=== PATIENT | male | born 1955 | race Caucasian/White ===

== ENCOUNTER 2021-11-28 09:44 | Outpatient (REF) | payer MEDICARE, MEDICAID, SELFPAY ==
--- NOTE | ~2021-11-28 | XR_ITS ---
EXAMINATION: XR CHEST CLINICAL INFORMATION: Nonspec reaction to gamma intrim respns w/o actv tb COMPARISON: Chest radiographs 07/11/2015 TECHNIQUE: 2 views of the chest were obtained. FINDINGS: There is no airspace consolidation or cavitary lesion. No visible adenopathy, pleural thickening, or effusion. There is subtle nonspecific accentuation interstitial markings lower zones. The costophrenic sulci are clear. The heart is normal in size. The hilar and mediastinal contours are normal. No acute bony abnormality. XR/XR chest 2V IMPRESSION: 1. Subtle nonspecific accentuation interstitial markings lower zones. Vascularity normal. 2. No airspace consolidation, visible adenopathy, or effusion.
== END 2021-11-28 09:45 | disposition home or self-care (01) ==
LOC: HO.XRAY 09:44
PROVIDERS: PCP Internal Medicine; Visit Provider Internal Medicine
DX: R76.12 Nonspecific reaction to cell mediated immunity measurement of gamma interferon antigen response without active tuberculosis (principal)
CPT/HCPCS: 71046

== ENCOUNTER 2022-02-27 11:41 | Emergency (ER) | payer MEDICARE, MEDICAID, SELFPAY | END 2022-02-27 12:51 | disposition left against medical advice (07) | PROVIDERS: Emergency Provider Emergency Medicine | DX: R06.02 Shortness of breath (principal) ==

== ENCOUNTER 2023-07-12 13:04 | Emergency (ER) | payer OTHER, MEDICAID, SELFPAY ==
--- NOTE | ~2023-07-12 | XR_ITS ---
EXAMINATION: XR HAND, RIGHT CLINICAL INFORMATION: Third and fourth digit partially amputated. COMPARISON: None available. TECHNIQUE: PA, lateral, and oblique views of the right hand. FINDINGS: There are acute traumatic injuries at the distal phalanges of the middle and ring fingers with soft tissue lacerations and marked comminuted fractures of the distal phalanges at the level of the shafts. The distal shaft and tuft fragments are comminuted and displaced. The distal phalangeal bases appear intact. The DIP joints are normal. Soft tissues are swollen. The thumb, index, and small fingers appear intact. There is an age-indeterminate fracture at the fourth metacarpal base, possibly chronic. Carpal alignment otherwise appears normal. 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 XR/XR hand RT min 3V IMPRESSION: 1. Comminuted fractures of the distal phalanges of the middle and ring fingers with associated soft tissue lacerations. 2. Age-indeterminate fracture at the fourth metacarpal base, possibly chronic. Recommend correlation for point tenderness in this region.
--- NOTE | 2023-07-12 13:09 | ED_ITS ---
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 Patient states that he was mowing the lawn for a friend when something became st uck in the lawnmower. He reports that he removed the spark plug but that when he stuck a branch into the blade to attempt to dislodge the blockage, his hand was pulled into the lawnmower. He is unsure his most recent sent tetanus. He denies any numbness or tingling, complains of severe pain. Denies any other injuries. MD complaint: injury to: right and finger Onset (ago): hour(s) Other Extremity Injury: right: fingers Handedness: right Place: outdoors Severity: severe Severity scale (1-10): >10 Relieving factors: none Exacerbating factors: movement of extremity Context: other (Caught in lawnmower) Associated symptoms: denies other symptoms Treatments prior to arrival: bandage Related Data Previous Rx's Medication Instructions Recorded amoxicillin 875 mg-potassium 1 tab PO BID #20 tabs 07/12/23 clavulanate 125 mg tablet ibuprofen 600 mg tablet 600 mg PO Q6H PRN pain #20 tabs 07/12/23 Allergies Allergy/AdvReac Type Severity Reaction Status Date / Time No Known Allergies Allergy Unverified 07/27/20 16:08 Review of Systems Review of Systems: As per HPI. Yes all other systems are reviewed and are negative Constitutional: Constitutional: Reports as per HPI [facility] Social History Social History Advance Directives: No Advance Directives Information Provided: No Physical Exam Vital Signs: Vital Signs: Last Vital Signs Pulse 71 07/12/23 13:20 Resp 18 07/12/23 13:20 BP 189/93 H 07/12/23 13:20 Pulse Ox 96 07/12/23 13:20 O2 Del Method Room Air 07/12/23 13:20 BMI result Body Mass Index 27.5 Vital signs have been reviewed and appear to be correct. Blood pressure elevated, likely secondary to pain. Heart rate normal. Respiratory rate normal. Temperature normal. Oxygen saturation normal. Const: General: cooperative, healthy appearing and no acute distress Orientation/consciousness: oriented to person, oriented to place, oriented to time and patient oriented x3 Limitations: no limitations HEENT: Head: Yes normocephalic and Yes atraumatic Ears: external ears normal General nose exam: Normal external nose present Face and sinus: Yes face symmetric Mouth: oropharynx normal and moist mucous membranes Throat: Yes uvula midline Eyes: Pupils: Equal, round and reactive pupils present Neck: Neck: Yes normal visual inspection and Yes supple Resp: Effort & Inspection: normal respiratory effort and able to speak in complete sentences Auscultation: clear to auscultation bilaterally Cardio: Rate: regular rate Rhythm: regular rhythm Heart sounds: S1 normal heart sound present and S2 normal heart sound present GI: Palpation (GI): Soft to palpation and nontender Auscultation: normoactive bowel sounds : General: Yes no CVA tenderness Back/Spine/Pelvis: Back: no CVA tenderness Skin: General skin exam: elasticity normal and turgor normal Neuro: General: oriented to person, oriented to place, oriented to time, marilu ent oriented x3, moves all extremities, no focal motor deficits and CN's II-XI intact bilaterally Cranial nerves: Yes Equal, round and reactive pupils present Cognition (Neuro): normal cognition Extrem: Other: General: Yes full ROM, Yes normal exam except as noted, Yes no pedal edema and Yes no calf tenderness Right upper extremity: Extremity exam: right hand Details: laceration (avulsion of distal palmar pad of finger with laceration through nail-see photo) 4th digit palmar aspect distal Details: irregular, avulsion, contaminated (grass), with motor nerve function intact and with sensation intact, 3rd digit distal Details: irregular, contaminated (grass), involving subcutaneous tissue and with motor nerve function intact Psych: Mental Status: mental status grossly normal Affect: normal affect Thought process: Normal thought process present Course Course Course Narrative: RME: 67yo M presenting to the ED c/o 3rd & 4th digit injury/pain 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 Last tetanus unknown 3rd and 4th digits partially amputated X-rays and Tdap ordered. Patient will be walked back to [facility] Full HPI, ROS and PE to be performed by primary ED provider. Medications Administered Discontinued Medications Generic Name Dose Route Start Last Admin Trade Name Claudy PRN Reason Stop Dose Admin Diphtheria/Tetanus/Acell Pertussis 0.5 ml 07/12/23 13:08 07/12/23 13:51 Diphth,Pertus(Acell),Tet Adult 0.5 Ml Syringe IM 07/12/23 13:09 0.5 ml .ONCE ONE Administration Cefazolin Sodium/Dextrose 2 gm in 50 mls @ 100 mls/hr 07/12/23 13:34 07/12/23 14:44 Ancef IV 07/12/23 14:03 Infused ONCE ONE Infusion Lidocaine HCl 10 ml 07/12/23 14:19 07/12/23 14:37 Lidocaine Hcl 1 % Mpf 5 Ml Vial INFILTRATI 07/12/23 14:20 10 ml ONCE ONE Administration Oxycodone HCl 5 mg 07/12/23 13:34 07/12/23 13:49 Oxycodone Hcl Immed Release 5 Mg Tablet PO 07/12/23 13:35 5 mg ONCE ONE Administration Medical Decision Making Medical Decision Making MDM Narrative: Patient is a 67-year-old right-hand dominant Tristanian-speaking male presenting to the emergency department with lacerations to 3rd and 4th fingers of right hand. On exam patient is awake, A+Ox3, elevated blood pressure likely secondary to pain, VS otherwise WNL, afebrile, normal neurological exam without focal deficits, avulsion distal tip of right 4th finger on palmar finger pad, laceration through the nail, irregular lacerations/maceration of distal right 3rd finger involving multiple lacerations of the nail, sensation intact, full range of motion of fingers. Given reported symptoms and physical exam findings, initial differential includes laceration, nailbed injury, fracture. X-ray notable for comminuted fractures of the distal phalanges of the middle and ring fingers with associated soft tissue lacerations. My interpretation is in agreement with the radiologist's interpretation. Wound irrigated extensively, lacerations repaired as per procedure note. Tdap updated. Discussed case with jim Salazar who also discussed the case with Dr. Odell. They recommend extensive cleaning, then closure as best as possible with outpatient follow up. Will refer patient to Orthopedics for continued management. Return precautions discussed at bedside. Patient received 2 g of Ancef in the ED and will prescribe Augmentin b.i.d. for 10 days upon discharge. Patient noted to be hypertensive in the ED. Attempted to order medication, patient refusing, stating he wishes to leave. He denies any headache, vision changes, chest pain, shortness of breath, dizziness, lightheadedness. Instructed patient to follow- up with primary care provider regarding his injuries as well as his elevated blood pressure readings. Differential Diagnosis Differential Diagnoses: The differential diagnosis associated with the present ation includes As per MDM. Admission/Observation Consideration of admission/observation: Escalation of care including admission /observation considered Consult Healthcare Provider Management of the patient was discussed with: Research Statistician (jim Salazar) Independent Interpretation I performed an independent interpretation of an: Plain X-Ray Interpretation: distal comminuted fractures of 3rd and 4th fingers of right hand Radiology Impression Discussion of test interpretation with radiology: I have reviewed the radiologist's reading. Radiologist Impression: XR/XR hand RT min 3V IMPRESSION: 1.? Comminuted fractures of the distal phalanges of the middle and ring fingers with associated soft tissue lacerations. 2.? Age-indeterminate fracture at the fourth metacarpal base, possibly chronic. Recommend correlation for point tenderness in this region. ? External Record Review External record reviewed: Inpatient record, Office record and Outpatient record Prescription Management I considered prescription management with: Pain Medication and Antibiotic Procedures Laceration Laceration 1: Site: hand Side (If applicable): right Description: irregular (avulsion of pad, linear laceration through nail) and contaminated Local Anesthetic: lidocaine 1% Amount of anesthesia used (mL): 3 Pre-repair: wound explored and irrigated extensively Skin layer closed with: nylon Size (cm): 3-0 and 4-0 Number of sutures: 3 Technique: simple, interrupted Laceration 2: Site: hand Side (If applicable): right Description: irregular and contaminated Depth: [id number] Local Anesthetic: lidocaine 1% Amount of anesthesia used (mL): 4 Pre-repair: wound explored and irrigated extensively Skin layer closed with: nylon Size (cm): 3-0 and 4-0 Number of sutures: 11 Technique: simple, interrupted Discharge Plan Discharge Clinical Impression: Open fracture of phalanx of finger of right hand, Laceration of finger of right hand with damage to nail, High blood pressure Patient Disposition: Home, Self-Care Instructions: Laceration (DC), Finger Fracture (ED), Finger Laceration (ED) Additional Instructions: Usted garcia sido evaluado hoy en el departamento de emergencia por helena laceraci?n en los dedos medio y anular de la mano derecha. LE EST?N RECETANDO UN CURSO DE ANTIBI?TICOS PARA PREVENIR INFECCI?N, POR FAVOR REALICE EL CURSO COMPLETO SEG?N LO RECETADO. Roberta laceraciones fueron reparadas en el departamento de emergencias con suturas, courtney necesita helena evaluaci?n y tratamiento adicionales por parte de un ortop?dico. DEBE LLAMAR A LA OFICINA DE ORTOPEDIA A PRIMERA HORA EL ZEHRA POR LA MA?SHAYNA PARA PROGRAMAR HELENA HARMEET. Mantenga el ?rossy que rodea la laceraci?n limpia y seca y mantenga el vendaje en burns lugar claire las pr?ximas 24 horas. D espu?s de eso, cambie el vendaje y eval?e las heridas diariamente. REGRESE AL DEPARTAMENTO DE EMERGENCIA SI DESARROLLA UN DOLOR QUE empeora, hinchaz?n, enrojecimiento, drenaje espeso y amarillo, enrojecimiento en la mano o el brazo, fiebre de 100,4 ?F o m?s, o cualquier otro s?ntoma preocupante. Prescriptions: New amoxicillin-pot clavulanate 875-125 mg tablet 1 tab PO BID Qty: 20 0RF ibuprofen 600 mg tablet 600 mg PO Q6H PRN (Reason: pain) Qty: 20 0RF Referrals: [facility] [Provider Group] Print Language: Tristanian
[2023-07-12 13:20] VITALS: BP 189/93; PULSE 71; RESP 18; O2SAT 96; BMI 27.5
--- OUTSIDE RECORDS SUMMARY | 2023-07-12 13:31 | XMS_ITS | Continuity of Care Document ---
Author Name Unknown Organization [facility] Address [address] [place] [address]- Care Team Providers Care Mines Inspector Name Role Phone Tanner Muniz MD Primary Care Physician [phone] [id number] Date(s): 01/09/[facility] - 02/14/22 [facility] [address] [address] Attending Physician: Isaías Bar MD Admitting Physician: Isaías Bar MD Referring Physician: Steffany Cali MD Allergies, Adverse Reactions, Alerts No Known Allergies Medications Aspir 81 = 81 mg, By Mouth, Daily, 0 Refills, Maintenance Start Date: 07/22/12 Status: Ordered aspirin 81 mg oral tablet 1 tablet = 81 mg, By Mouth, Daily, 0 Refills, Maintenance, 08/14/17 5:37:57 Start Date: 08/14/17 Status: Ordered fluoxetine 10 mg oral tablet 1 tablet = 10 mg, By Mouth, Daily, # 30 tablet, 0 Refills, Maintenance, Tablet Start Date: 07/22/12 Status: Ordered HYDROcodone 5mg/Acetaminophen 500mg Tablet By Mouth, Every 4 hours, 0 Refills, Maintenance Start Date: 07/22/12 Status: Ordered lisinopril 10 mg oral tablet 10 mg, 1, tablet, By Mouth, Daily, Refills 0, Maintenance, 08/14/17 5:38:29 Start Date: 08/14/17 Status: Ordered Loratadine By Mouth, Refills 0, Maintenance, 08/14/17 5:38:44 Start Date: 08/14/17 Status: Ordered Multi-Day Plus Minerals oral tablet 1 tablet, By Mouth, Daily, # 90 tablet, 0 Refills, Maintenance, 08/14/17 5:39:24, Tablet Start Date: 08/14/17 Status: Ordered pantoprazole 40 mg oral delayed release tablet 1 tablet = 40 mg, By Mouth, Daily, # 30 tablet, 0 Refills, Maintenance, 12/16/17 15:51:38, EC Tablet Start Date: 12/16/17 Status: Ordered Proventil HFA 90 mcg/inh inhalation aerosol with adapter 1 puffs, Inhalation, 4 times a day, PRN for wheezing, # 25 Gm, 0 Refills, Maintenance, Aerosol Start Date: 07/22/12 Status: Ordered simvastatin 40 mg oral tablet 40 mg, 1, tablet, By Mouth, Daily at bedtime, Refills 0, Maintenance, 08/14/17 5:38:15 Start Date: 08/14/17 Status: Ordered simvastatin 40 mg oral tablet 1 tablet = 40 mg, By Mouth, Daily at bedtime, # 30 tablet, 0 Refills, Maintenance, Tablet Start Date: 07/22/12 Status: Ordered Problem List Condition Effective Dates Status Health Status Inform ant Low back pain(Confirmed) Active Social History Social History Type Response Smoking Status Never smoker entered on: 08/14/17 Sex
--- OUTSIDE RECORDS SUMMARY | 2023-07-12 13:31 | XMS_ITS | Continuity of Care Document ---
Author Name Unknown Organization [facility] ter Address [address] [place] [address]- Care Team Providers Care Framing Specialist Name Role Phone Tanner Muniz MD Primary Care Physician Encounter [facility] Date(s): 06/05/22 - 06/05/[address] [address]- Attending Physician: Isaías Bar MD Allergies, Adverse Reactions, Alerts No Known [...]
--- OUTSIDE RECORDS SUMMARY | 2023-07-12 13:31 | XMS_ITS | Continuity of Care Document ---
Author Name Unknown Organization [facility] Address [address] [place] [address]- Care Team Providers Care Mission Systems Engineer Name Role Phone Tanner Muniz MD Primary Care Physician Encounter [facility] Date(s): 09/16/22 - 10/16/22 [facility] [address] [address] Attending Physician: Carmelo Christiansen Admitting Physician: AdmCarmelo kidd Referring Physician: AdmtrCarmelo Allergies, Adverse Reactions, Alerts No Known Allergies [...] Maintenance, Aerosol Start Date: 07/22/12 Status: Ordered rifampin 300 mg oral capsule 2 capsule = 600 mg, By Mouth, Daily, # 60 capsule, 3 Refills, Maintenance, 08/06/22 8:54:00 EDT, [facility], home delivery- [address] [place] [address]; [phone], 175.2, cm, 07/30/22 9:11:00 EDT, Height Start Date: 08/06/22 Stop Date: 12/04/22 Status: Ordered simvastatin 40 mg oral tablet 40 mg, 1, tablet, By Mouth, Daily at bedtime, Refills 0, Maintenance, 08/14/17 5:38:15 Start Date: 08/14/17 Status: Ordered simvastatin 40 mg oral tablet 1 tablet = 40 mg, By Mouth, Daily at bedtime, # 30 tablet, 0 Refills, Maintenance, Tablet Start Date: 07/22/12 Status: Ordered Problem List Condition Confirmation Course Effective Dates Status Health St atus Informant Latent tuberculosis 1 Confirmed Active Low back pain Confirmed Active 1Rifampin 600 mg qd x 4 months ordered- #1 bottle to be dispensed Social History Social History Type Response Smoking Status Never smoker entered on: 08/14/17 Sex Note * Event Display: X-Ray Chest, Non- BH Authored Date: * Event Display: Non BH Lab Results Authored Date: * Event Display: X-Ray Chest, Non- BH Authored Date: Patient Care team information Care Team Personnel Name: Tanner Muniz MD Position: [facility] Outreach Member Role: PCP Address: Address: [address] [place] [address]- Care Team Related Persons Name: DEBORAH PIZARRO JR
--- OUTSIDE RECORDS SUMMARY | 2023-07-12 13:31 | XMS_ITS | Continuity of Care Document ---
Author Name Unknown Organization [facility] Address [address] [place] [address]- Care Team Providers Care Senior Accounting Specialist Name Role Phone Tanner Muniz MD Primary Care Physician [phone] En[place] [facility] [place] [id number] Date(s): 09/18/22 - 10/18/22 [facility] [address] [facility] [address] [place], [place] [address] Attending Physician: Carmelo Christiansen Admitting Physician: AdmtrCarmelo Referring Physician: Admtr, Ar8 Allergies, Adverse Reactions, Alerts No Known Allergies [...] capsule, 3 Refills, Maintenance, 08/06/22 8:54:00 EDT, [facility], home delivery- [address] [place] [address]; [phone], 175.2, cm, 07/30/22 9:11:00 EDT, Height Start [...] Status Never smoker entered on: 08/14/17 Sex Patient Care team information Care Team Personnel Name: Tanner Muniz MD Position: [facility] Outreach Member Role: PCP Address: Address: [address] [place] [address]- Care Team Related Persons Name: DEBORAH PIZARRO JR
--- OUTSIDE RECORDS SUMMARY | 2023-07-12 13:31 | XMS_ITS | Continuity of Care Document ---
Author Name Unknown Organization [facility] ter Address [address] [place] [address]- Care Team Providers Care Boat Builder Name Role Phone Tanner Muniz MD Primary Care Physician En[facility] [id number] Date(s): 08/01/22 - 09/05/[address] [address] Attending Physician: Isaías Bar MD Admitting Physician: Isaías Bar MD Referring Physician: Isaías Bar MD Allergies, Adverse Reactions, [...] capsule, 3 Refills, Maintenance, 08/06/22 8:54:00 EDT, [facility], home delivery- [address] [place] [address]; [phone], 175.2, cm, 07/30/22 9:11:00 EDT, Height Start [...] on: 08/14/17 Sex Patient Care team information Personnel Name: Tanner Muniz MD Address: Address: [address] [place], [place] [address]
--- OUTSIDE RECORDS SUMMARY | 2023-07-12 13:31 | XMS_ITS | Continuity of Care Document ---
Author Name Unknown Organization [facility] Address [address] [address]- Care Team Providers Care Clerical Aide Teacher Name Role Phone Tanner Muniz MD Primary Care Physician [phone] [id number] Date(s): 07/31/22 - 10/18/22 [facility] [address] [address]- Attending Physician: Jerry Carty MD Admitting Physician: Jerry Carty MD Referring Physician: Isaías Bar MD Allergies, [...] capsule, 3 Refills, Maintenance, 08/06/22 8:54:00 EDT, [facility], home delivery- [address] [place] [address]; [phone], 175.2, cm, 07/30/22 9:11:00 EDT, Height Start [...] Team Personnel Name: Tanner Muniz MD Position: [facility] Outreach Member Role: PCP Address: Address: [address] [place] [address]- Care Team Related Persons Name: DEBORAH PIZARRO JR
--- OUTSIDE RECORDS SUMMARY | 2023-07-12 13:31 | XMS_ITS | Continuity of Care Document ---
Author Name Unknown Organization [facility] Address [address] [place] [address]- Care Team Providers Care Tempering Oven Operator Name Role Phone Tanner Muniz MD Primary Care Physician [facility] Date(s): 09/10/22 - 10/16/22 [facility] [address] [address] Attending Physician: Isaías Bar MD Admitting Physician: Isaías Bar MD Allergies, Adverse Reactions, [...] capsule, 3 Refills, Maintenance, 08/06/22 8:54:00 EDT, [facility], home delivery- [address] [facility]; [phone], 175.2, cm, 07/30/22 9:11:00 EDT, Height Start [...] List Condition Confirmation Course Effective Dates Status [facility] atus Informant Latent tuberculosis 1 Confirmed Active Low back pain Confirmed Active 1Rifampin 600 mg qd x 4 months ordered- #1 bottle to be dispensed Social History Social History Type Response Smoking Status Never smoker entered on: 08/14/17 Sex Patient Care team information Care Team Personnel Name: Tanner Muniz MD Position: [facility] Outreach Member Role: PCP Address: Address: [address] [place] [address]- Care Team Related Persons Name: DEBORAH PIZARRO JR
--- OUTSIDE RECORDS SUMMARY | 2023-07-12 13:31 | XMS_ITS | Continuity of Care Document ---
Author Name Unknown Organization [facility] Address [address] [place] [address]- Care Team Providers Care Steel Shot Header Operator Name Role Phone Tanner Muniz MD Primary Care Physician [id number]13[facility] - 04/18/22 [facility] [address] [address] Attending Physician: Isaías Bar MD Admitting Physician: Isaías Bar MD Referring Physician: Vidya Loza MD Allergies, Adverse Reactions, Alerts No Known [...]
--- OUTSIDE RECORDS SUMMARY | 2023-07-12 13:31 | XMS_ITS | Continuity of Care Document ---
Author Name Unknown Organization [facility] Address [address] [place] [address]- Care Team Providers Care Pick Up Name Role Phone Tanner Muniz MD Primary Care Physician [phone] Encounter [facility] Date(s): 07/30/22 - 08/29/22 [facility] [address] [address] Attending Physician: Carmelo Christiansen Admitting Physician: Carmelo Christiansen Referring Physician: AdmtrCarmelo Allergies, Adverse Reactions, Alerts [...] capsule, 3 Refills, Maintenance, 08/06/22 8:54:00 EDT, [facility], home delivery- [facility]; [phone], 175.2, cm, 07/30/22 9:11:00 EDT, Height Start [...] Problem List Condition Confirmation Course Effective Dates [facility] Informant Latent tuberculosis 1 Confirmed Active Low back pain Confirmed Active 1Rifampin 600 mg qd x 4 months ordered- #1 bottle to be dispensed Social History Social History Type Response Smoking Status Never smoker entered on: 08/14/17 Sex Patient Care team information Personnel Name: Tanner Muniz MD Address: Address: [address] [place] [address]
--- OUTSIDE RECORDS SUMMARY | 2023-07-12 13:31 | XMS_ITS | Continuity of Care Document ---
Author Name Unknown Organization [facility] ter Address [address] [place] [id number]- Care Team Providers Care Derrick Builder Name Role Phone Tanner Muniz MD Primary Care Physician Encounter [facility] R [id number] Date(s): 08/01/22 - 09/06/[address] [id number] Attending Physician: Isaías Bar [...] capsule, 3 Refills, Maintenance, 08/06/22 8:54:00 EDT, [facility], home delivery- [address] [place] [address]; [phone], 175.2, cm, 07/30/22 9:11:00 EDT, Height Start [...] Name: Tanner Muniz MD Address: Address: [address], [place] [address]
[2023-07-12] MEDS: oxyCODONE HCl Immed Release 5 MG TABLET PO (13:49)
[2023-07-12] MEDS: Diphth,Pertus(ACell),Tet Adult 0.5 ML SYRINGE IM (13:51)
[2023-07-12] MEDS: ceFAZolin Sodium/Dextrose,Iso 2 GM/50 ML PIGGYBACK IV (14:10)
[2023-07-12] MEDS: Lidocaine HCl 1 % MPF 5 ML VIAL 10 ML INFILTRATI (14:37)
[2023-07-12 16:49] VITALS: BP 216/97; PULSE 81; RESP 16; TEMP 37.1; O2SAT 96
== END 2023-07-12 17:19 | disposition home or self-care (01) ==
PROVIDERS: Emergency Provider Emergency Medicine
DX: S62.632B Displaced fracture of distal phalanx of right middle finger, initial encounter for open fracture (principal); S62.634B Displaced fracture of distal phalanx of right ring finger, initial encounter for open fracture; S61.312A Laceration without foreign body of right middle finger with damage to nail, initial encounter; S61.314A Laceration without foreign body of right ring finger with damage to nail, initial encounter; W28.XXXA Contact with powered lawn mower, initial encounter; I10 Essential (primary) hypertension; Y93.H9 Activity, other involving exterior property and land maintenance, building and construction; Y92.9 Unspecified place or not applicable; Y99.9 Unspecified external cause status
CPT/HCPCS: 12041; 73130; 90471; 90715; 96365; 99284; J0690

== ENCOUNTER 2023-07-15 11:54 | Outpatient (REF) | payer OTHER, MEDICAID, SELFPAY ==
--- NOTE | ~2023-07-15 | XR_ITS ---
EXAMINATION: XR HAND, RIGHT CLINICAL INFORMATION: Follow-up fracture COMPARISON: 07/12/2023 TECHNIQUE: PA, lateral, and oblique views of the right hand. FINDINGS: Comminuted fractures are seen of the third and fourth distal phalanges. There is improved anatomic alignment and positioning of the fracture fragments compared to the prior exam. Associated soft tissue swelling is seen. XR/XR hand RT min 3V IMPRESSION: Comminuted fractures of the third and fourth distal phalanges. Improved anatomic alignment and positioning of the fracture fragments
== END 2023-07-15 11:55 | disposition home or self-care (01) ==
LOC: HO.HOSX 11:54
PROVIDERS: Visit Provider Orthopaedic Surgery
DX: S62.632A Displaced fracture of distal phalanx of right middle finger, initial encounter for closed fracture (principal); S62.634A Displaced fracture of distal phalanx of right ring finger, initial encounter for closed fracture
CPT/HCPCS: 73130; 99202

== ENCOUNTER 2023-07-15 11:54 | Outpatient (AMB) | payer OTHER, MEDICAID, SELFPAY ==
--- NOTE | 2023-07-15 12:09 | A.OFFVIS_ITS ---
Intake Intake Visit Reasons: N/P ED follow up rt hand 3&4th finger laceration Intake Note: Ingris 67 year old -- hand dominant male who presents today for an ER follow up of laceration to right hand, 3rd & 4th finger, DOI 07/12/23. Patient reports his hand was pulled into the drapery operator when he attempted to dislodge the blockage. thats when he stuck a branch into the blade to attempt to dislodge the blockage, his hand was pulled into the lawnmower. Pt is in severe pain. Accompanied by: Son Allergies No Known Allergies Allergy (Unverified 07/15/23 12:50) HPI N/P ED follow up rt hand 3&4th finger laceration HPI Details Arnav is a 67 year old right hand dominant Latvian speaking man who presents for a right middle & ring finger injury, from a lawnmower, DOI: 07/12/23. He is here today with his son. He says he was trying to clear a blockage of the lawnmower by using a stick but his hand was sucked in . He was seen in the ED the same day where his wounds were irrigated and sutured, and he was given a 10-day course o Augmentin. He denies any pain today in clinic.. He removed his dressing himself at home. It is unclear if he has been taking his Abx. His son says he has difficulty with comprehension at times and he may have trouble following instructions. Sounds like he may have taken 1 or 2 tablets. He has a rash on both forearms, which he says began after running into a bernard after his injury. This is somewhat inflamed and may potentially be poison hudson. He says this is itchy. [facility] Surgical History (Updated 07/15/23 @ 12:52 by Doris Steel MA) H/O hernia repair Family History (Updated 07/15/23 @ 12:53 by Doris Steel MA) Father Diabetes Social History (Updated 07/15/23 @ 12:52 by Doris Steel MA) Household Members: Significant Other Housing: Apartment Alcohol intake: current Alcohol intake frequency: a few times a week Tobacco use type: Cigarette Cigarettes Per Day: 20 Review of Systems Const All systems reviewed & are unremarkable except as noted in HPI and below Physical Exam Const General: cooperative, healthy appearing and no acute distress Orientation/consciousness: patient oriented x3 HEENT Head: Yes normocephalic and Yes atraumatic Eyes EOM: EOMs intact bilaterally Resp Effort & Inspection: normal respiratory effort and able to speak in complete sentences Cardio Jugular venous distension: no JVD Skin General skin exam: turgor normal Rashes: no rashes Neuro General: patient oriented x3 Extrem Other: Evaluation of Right Upper Extremity: The patient is alert, oriented, and in no acute distress Neuro: Median, Ulnar, Radial nerves motor and sensory intact and sensation is normal to the tips of all digits Vascular: Cap refill brisk ROM: General: Concerning the ring finger: He is missing skin from the volar half of the distal phalanx He has a transverse nailbed injury where the nail plate has been re-aligned and the wound has been sutured closed Concerning the middle finger He has a more complex wound over the distal aspect of the middle finger The majority of the pad looks to be a separate flap of skin that has questionable viability He also has a complex laceration through the nail bed. The nail plate is still attached and was reapproximated with sutures. No gross infection, though the wound does look a little damp. He can make a fist and extend all of his digits. He has a rash on both forearms, which he says began after running into a bernard after his injury. This is somewhat inflamed and may potentially be poison hudson Radiographs: 3 views of the right hand were taken, viewed, and compared to prior radiographs taken on 07/12/23, by me today in clinic. They show comminuted fractures of the middle & ring fingers, through the body of the distal phalanxes, extra- articular. It appears some of the middle finger distal phalanx may be missing. Improved fracture alignment after wound closure in the ED. There is still a gap between fragments in the ring finger. Psych Appearance: grossly normal Affect: normal affect Attitude: cooperative Assessment & Plan Assessment & Plan (1) Fracture of distal phalanx of right middle finger: Code(s): S62.632A - Displaced fracture of distal phalanx of right middle finger, initial encounter for closed fracture (2) Fracture of distal phalanx of right ring finger: Code(s): S62.634A - Displaced fracture of distal phalanx of right ring finger, initial encounter for closed fracture Plan Assessment & Plan: 1. Right middle finger open distal phalanx fracture, comminuted, and extra- articular On radiographs it appears some of the middle finger distal phalanx may be missing. Improved fracture alignment after wound closure in the ED 2. Right ring finger open distal phalanx fracture, comminuted, and extra- articular Improved fracture alignment after wound closure in the ED From a lawnmower injury DOI: 07/12/23 with a lawn more. Irrigated & sutured in ED: 07/12/23 These wounds also involve the nail bed for both digits, with poor appearing viability of the tissues in the distal aspect of the middle finger, and no skin coverage for the distal volar portion of the ring finger. Does not sound like he has been taking his antibiotics with any regularity. His son says he has difficulty with comprehension at times and he may have trouble following instructions. He attempted to walk out of clinic twice before his appointment was finished Compliance may be a problem with regards to wound care etc.. I educated him and his son about this condition I discussed operative and non-operative treatment options I am recommending we proceed with an I&D of both wounds, and revision amputations The patient would like to proceed with surgery It is unclear if he has been taking his prescribed Abx I educated him about proper wound care and the signs of infection. If he develops any new or worsening drainage, erythema, warmth, or pain he should contact the clinic or attend the ED He should begin to take his PO Abx prescribed at the ED. The risks and benefits of operative treatment were discussed with the patient and the patient wishes to proceed with surgery. These risks include, but are not limited to risk of damage to blood vessels, nerves, tendons, infection, recurrence, incomplete relief of preoperative symptoms, persistent pain, possible need for further surgery and the risks associated with regional blocks and anesthesia. The plan is to take the patient to the operating room sometime on 07/21/23 for the following procedures: 1. Right middle finger distal phalanx fracture I&D & revision amputation, under general 2. Right ring finger distal phalanx fracture I&D & revision amputation, under general All of the preoperative paperwork including the consent was filled out today. All the patient's questions were answered. The patient understands that they will be contacted by our lunchroom mother soon to schedule this procedure. This will hopefully give him time for his possible poison hudson forearm rashes to improve He denies Diabetes, blood thinners, asthma, heart, lung, kidney issues Please note that greater than 30 minutes was spent with this patient going over the history, evaluating the patient and radiographs, formulating possible treatment options, discussing them with the patient, and documenting the visit. Scribed for Mary Dunn MD by Jose Guadalupe Mckenna, diagnostic medical sonographer, on 07/15/23 at 1:45 PM, EST. Orders: Orders XR hand RT min 3V Today M79.641 - Pain in right hand Coding Level of Care Code New Pt Level 4 (69705) Diagnoses Fracture of distal phalanx of right middle finger S62.632A Fracture of distal phalanx of right ring finger S62.634A
== END 2023-07-15 14:26 | disposition home or self-care (01) ==
PROVIDERS: Visit Provider Orthopaedic Surgery
DX: S62.632B Displaced fracture of distal phalanx of right middle finger, initial encounter for open fracture (principal); S62.634B Displaced fracture of distal phalanx of right ring finger, initial encounter for open fracture
CPT/HCPCS: 99204

== ENCOUNTER 2023-07-21 12:20 | Emergency (ER) | payer OTHER, MEDICAID, SELFPAY ==
--- NOTE | ~2023-07-21 | CT_ITS ---
EXAMINATION: CT HEAD WITHOUT CONTRAST CLINICAL INFORMATION: Fall COMPARISON: None available. TECHNIQUE: Contiguous axial imaging was performed from the skull base to vertex without intravenous administration of contrast. This CT examination was performed using dose optimization techniques as appropriate, variously including the following: *Automated exposure control *Adjustment of mA and/or kV according to patient size (this includes techniques or standardized protocols for targeted exams where dose is matched to indication/reason for exam; i.e. extremities or head) *Use of iterative reconstruction technique DLP: 670 mGy-cm FINDINGS: There is no evidence of an extra-axial collection. There is no evidence of intra-axial or extra-axial hemorrhage. The ventricles and extra-axial CSF spaces are appropriate. Javier-white matter differentiation is normal. No infarct, mass or mass effect. No skull fracture. Possible right nasal bone fracture, uncertain age. Inflammatory changes in the left maxillary sinus. CT/CT head/brain wo IV con IMPRESSION: No acute intracranial pathology. Inflammatory changes in the left maxillary sinus.
--- NOTE | ~2023-07-21 | CT_ITS ---
EXAMINATION: CT CERVICAL SPINE WITHOUT CONTRAST CLINICAL INFORMATION: Fall COMPARISON: None available. TECHNIQUE: Axial images through the cervical spine without contrast. Sagittal and coronal reconstructions on the technologist workstation were performed. This CT examination was performed using dose optimization techniques as appropriate, variously including the following: *Automated exposure control *Adjustment of mA and/or kV according to patient size (this includes techniques or standardized protocols for targeted exams where dose is matched to indication/reason for exam; i.e. extremities or head) *Use of iterative reconstruction technique DLP: 362 mGy-cm FINDINGS: Bone alignment is normal. No fracture or dislocation. Degenerative spondylosis from C3-C4 to C6-C7. Disc spaces are normal. Prevertebral soft tissues are normal. Visualized lung apices are clear. There is mild emphysema. CT/CT cervical spine wo IV con IMPRESSION: No fracture or dislocation. Degenerative changes. Fleischner guidelines were followed.
[2023-07-21 12:40] VITALS: BP 122/72; BP 134/74; PULSE 65; PULSE 86; RESP 18; TEMP 36.8; O2SAT 95; O2SAT 96; BMI 20.4
--- NOTE | 2023-07-21 13:21 | PC.NURSE ---
pt biba after bystander called ems. bystander saw pt lethargic/leaning on the wall at the [employer] store and called ems. pt's pupils were pinpoint during ems transport. pt currently sleeping in the stretcher in no apparent distress. O2 probe sensor placed on pt - O2 and HR wnl. sternal stimuli needed to wake pt. respirations even and unlabored.
--- NOTE | 2023-07-21 14:09 | ED.GENADULT ---
HPI - General Adult General Chief complaint: ETOH/Substance Use Stated complaint: UNREADABLE CMED TRANSMISSION Time Seen by Provider: 07/21/23 13:54 Source: patient, EMS, RN notes reviewed and old records reviewed Mode of arrival: EMS History of Present Illness HPI narrative: 68-year-old male with no known past medical history presenting to the ED via EMS after being found lethargic/?under the influence standing on the side of a store by bystander who called EMS. Patient with pinpoint pupils during EMS transport. 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 Patient admits to drinking several beers, will not elaborate. Denies other illicit substance use. Admits to 2 falls today, unknown head trauma or LOC. denies other pain at present, however poor historian Related Data Previous Rx's Medication Instructions Recorded amoxicillin 875 mg-potassium 1 tab PO BID #20 tabs 07/12/23 clavulanate 125 mg tablet ibuprofen 600 mg tablet 600 mg PO Q6H PRN pain #20 tabs 07/12/23 cephalexin 500 mg capsule 500 mg PO QID 7 days #28 caps 07/22/23 Allergies Allergy/AdvReac Type Severity Reaction Status Date / Time No Known Allergies Allergy Unverified 07/22/23 07:10 Review of Systems Review of Systems: ROS limited due to patient's acute mental status Yes all other systems are reviewed and are negative Constitutional: Constitutional: Reports as per [facility] Past Medical History Attestation statement: The following information was validated with the patient. Source: old records reviewed Surgical History (System 07/22/23 @ 07:10 by Onelia Almanza) H/O hernia repair Family History Family History (System 07/22/23 @ 07:10 by Onelia Almanza) Father Diabetes Social History Social History (System 07/22/23 @ 07:10 by Onelia Almanza) Household Members: Significant Other Housing: Apartment Alcohol intake: unknown Tobacco use type: Cigarette Cigarettes Per Day: 20 Smoked in Last 30 Days: No Use of substances other than those prescribed or required for medical reasons: No Advance Directives: No Advance Directives Information Provided: Yes Physical Exam ED Vital Signs: Vital Signs - 24 hr 07/21/23 12:40 07/21/23 16:45 07/21/23 17:46 Temperature 98.3 F 98.3 F Pulse Rate 86 53 56 Respiratory Rate 18 16 16 Blood Pressure 134/74 138/79 179/97 H Pulse Oximetry 96 96 97 Oxygen Delivery Method Room Air Room Air Room Air 07/21/23 21:32 07/22/23 01:18 Temperature 98.5 F Pulse Rate 60 78 Respiratory Rate 17 16 Blood Pressure 190/98 H 178/89 H Pulse Oximetry 98 96 Oxygen Delivery Method Room Air Room Air BMI result Body Mass Index 20.4 Const Other: Lethargic however arousable to sternal rub, appears under the influence, ETOH odor on breath General: no acute distress and intoxicated appearing Limitations: no limitations HENMT Head: Yes normal to inspection and Yes atraumatic Ears: hearing grossly normal bilaterally General nose exam: Normal external nose present Face and sinus: Yes normal facial exam Eyes General: appearance normal, both eyes and all related structures Pupils: Pinpoint pupils bilaterally (Reactive) EOM: EOMs intact bilaterally Neck Neck: Yes normal visual inspection and Yes no meningeal signs Resp Effort & Inspection: normal respiratory effort and no respiratory distress Auscultation: clear to auscultation bilaterally Cardio Rate: regular rate Heart sounds: S1 normal heart sound present and S2 normal heart sound present GI Inspection: Yes normal to inspection Palpation (GI): Soft to palpation, nontender, no guarding and not rigid Back/Spine/Pelvis Other: No midline cervical/thoracic/lumbar spinous tenderness/step-off or deformity Skin Rashes: no rashes Wounds: no wounds Neuro General: tone normal, moves all extremities and no meningeal signs Cranial nerves: Yes CN's II-XII intact bilaterally Extrem General: Yes normal to inspection Course Course Course Narrative: -labs reassuring. Ethanol negative 1630--ED care transferred to [facility] pending Tox screen, CT's, & clinical sobriety. Reevaluation(s) Reevaluation #1: Patient alert oriented x3. Patient head CT scan cervical spine CT scan normal. Patient's alcohol came back negative. Patient's U tox showed multiple drugs including opiates, benzos cocaine, and fentanyl. Patient to be discharged into son's care. UA shows possible UTI. Time: 01:09 Medical Decision Making Medical Decision Making MDM Narrative: 68-year-old male with no known past medical history presenting to the ED via EMS after being found lethargic/?under the influence standing on the side of a store by bystander who called EMS. On exam vital signs stable, lethargic, appears under the influence, arousable to sternal rub, maintaining airway, ETOH odor on breath. No evidence of trauma, no midline spinous tenderness throughout, leaving all extremities. Concern for ETOH intoxication vs substance abuse vs fall/ICH. Rule out metabolic/infectious etiologies Plan: Head/C-spine CT, labs, tox screen, observe and re-evaluate for clinical sobriety Please refer to course for remaining clinical decision making, interpretation of labs/imaging results, and discussions with consultants and/or family members. Differential Diagnosis Differential Diagnoses: The differential diagnosis associated with the presentation includes As above Admission/Observation Consideration of admission/observation: Escalation of care including admission/observation considered Lab Data MDM Lab Attestation statement: I reviewed the patient's lab results. 07/21/23 15:36 07/21/23 15:36 Labs: Lab Results 07/21/23 07/22/23 07/22/23 Range/Units 15:36 00:20 00:21 WBC 5.9 (4.8-10.8) X10*3/uL RBC 4.59 L (4.60-5.80) X10*6/uL Hgb 14.2 (14.0-18.0) g/dl Hct 42.2 (42.0-52.0) % MCV 91.9 (80.0-98.0) fL MCH 30.9 (27.0-33.0) pg MCHC 33.6 (31.0-36.0) g/dl RDW 12.4 (11.0-16.0) % Plt Count 231 (160-400) X10*3/uL MPV 9.5 (9.4-12.4) fL Immature Gran % (Auto) 0.2 (0.0-0.4) % Neut % (Auto) 51.1 (45-73) % Lymph % (Auto) 36.1 (20-40) % Crawford % (Auto) 6.2 (2-11) % Eos % (Auto) 5.6 H (0-4) % Baso % (Auto) 0.8 (0-2) % Lymph # (Auto) 2.1 (1.2-4.9) X10*3/uL Crawford # (Auto) 0.4 (0.1-1.2) X10*3/uL Eos # (Auto) 0.3 (0.0-0.4) X10*3/uL Baso # (Auto) 0.1 (0.0-0.2) X10*3/uL Abs Immat Gran (auto) 0.01 (0.00-0.03) X10*3/uL Absolute Neuts (auto) 3.0 (2.0-8.3) x10*3/uL Absolute Nucleated RBC 0.000 (0.0-0.012) X10*3/uL Nucleated RBC % (auto) 0.0 (0.0-0.2) /100WBC Sodium 139 (135-145) mmol/L Potassium 3.9 (3.3-5.1) mmol/L Chloride 109 H (96-108) mmol/L Carbon Dioxide 23 (22-29) mmol/L Anion Gap 11 L (12-20) BUN 17 H (9-16) mg/dL Creatinine 0.70 (0.5-1.4) mg/dL Estim Creat Clear Calc 83.0 Estimated GFR > 60 Random Glucose 88 (60-115) mg/dL Calcium 8.8 (8.4-10.2) mg/dL Magnesium 2.3 (1.6-2.6) mg/dL Total Bilirubin 0.5 (0.0-1.0) mg/dL Direct Bilirubin 0.2 (0.0-0.5) mg/dL AST 27 (5-37) U/L ALT 17 (0-40) U/L Alkaline Phosphatase 72 (39-117) U/L Total Protein 7.3 (6.5-8.0) g/dL Albumin 3.3 L (3.5-5.0) g/dL Urine Color Yellow Urine Appearance Clear Urine pH 6.0 (5.0-9.0) Ur Specific [place] 1.020 (1.005-1.025) Urine Protein Trace (Neg-Trace) mg/dL Urine Glucose (UA) Negative (Negative) mg/dL Urine Ketones Trace (Negative) mg/dL Urine Blood Negative (Negative) Urine Nitrite Negative (Negative) Ur Leukocyte Esterase Moderate (2+) H (Negative) Urine RBC 3-5 H (0-2) /HPF Urine WBC 6-10 (0-5) /HPF Ur Squamous Epith Cells 3-5 (0-2) /HPF Urine Bacteria Trace (None Seen) Hyaline Casts 3-5 (0-2) /LPF Urine Opiates Screen POSITIVE H (Not Detect) Urine Fentanyl Screen POSITIVE H (Not Detect) Ur Barbiturates Screen Not Detected (Not Detect) Ur Phencyclidine Scrn Not Detected (Not Detect) Ur Amphetamines Screen Not Detected (Not Detect) U Benzodiazepines Scrn POSITIVE H (Not Detect) Urine Cocaine Screen POSITIVE H (Not Detect) U Marijuana (THC) Screen POSITIVE H (Not Detect) Ethyl Alcohol < 10 mg/dL Independent Interpretation I performed an independent interpretation of an: CT Scan Radiology Impression Discussion of test interpretation with radiology: I have reviewed the radiologist's reading. Independent Historian Clinical information obtained from an independent historian. History obtained from or confirmed by: EMS External Record Review External record reviewed: Inpatient record, Office record, Outpatient record, Prior outpatient labs, Prior outpatient radiology, Primary care record and Outside ED record Tests considered The following testing was considered but not selected: As above Social Determinants Patient?s care significantly limited by Social Determinants of Health including: Low income and Alcoholism and drug addiction in family Discharge Plan Discharge Clinical Impression: Falls, Substance abuse Patient Disposition: Home, Self-Care Instructions: Urinary Tract Infection in Men (ED), Polysubstance Abuse (ED) Additional Instructions: Return to the ED immediately for any abdominal pain, nausea, vomiting, fever, chills, flank pain, suicidal ideation, homicidal ideation, any hallucinations, hematuria, or any other concerning symptoms. Please follow up with PCP. Prescriptions: New cephalexin 500 mg capsule 500 mg PO QID 7 Days Qty: 28 0RF No Action amoxicillin-pot clavulanate 875-125 mg tablet 1 tab PO BID Qty: 20 0RF ibuprofen 600 mg tablet 600 mg PO Q6H PRN (Reason: pain) Qty: 20 0RF Interventions: ED Discharge Assessment Last Done: 07/22/23 01:36 Discharge Date/Time: 07/22/23 01:37 Print Language: Bahraini
--- NOTE | 2023-07-21 14:19 | PC.NURSE ---
provider and conference interpreter bedside w/ pt.
[2023-07-21 15:40] LABS: MANUAL DIFF FLAG NO
[2023-07-21 15:41] LABS: Basophils Absolute Auto 0.1 X10*3/uL (0.0-0.2); Basophils Percent Auto 0.8 % (0-2); Eosinophils Absolute Auto 0.3 X10*3/uL (0.0-0.4); Eosinophils Percent Auto 5.6 % (0-4); Hematocrit 42.2 % (42.0-52.0); Hemoglobin 14.2 g/dl (14.0-18.0); Imm Gran Abs Auto 0.01 X10*3/uL (0.00-0.03); Imm Gran Pct Auto 0.2 % (0.0-0.4); Lymphocytes Absolute Auto 2.1 X10*3/uL (1.2-4.9); Lymphocytes Percent Auto 36.1 % (20-40); Mean Corpuscular HGB Conc 33.6 g/dl (31.0-36.0); Mean Corpuscular Hemoglobin 30.9 pg (27.0-33.0); Mean Corpuscular Volume 91.9 fL (80.0-98.0); Mean Platelet Volume 9.5 fL (9.4-12.4); Monocytes Absolute Auto 0.4 X10*3/uL (0.1-1.2); Monocytes Percent Auto 6.2 % (2-11); Neutrophils Percent Auto 51.1 % (45-73); Platelet Count 231 X10*3/uL (160-400); Red Blood Count 4.59 X10*6/uL (4.60-5.80); Red Cell Distribution Width 12.4 % (11.0-16.0); White Blood Count 5.9 X10*3/uL (4.8-10.8)
[2023-07-21 15:57] LABS: Alanine Aminotransferase 17 U/L (0-40); Albumin Level 3.3 g/dL (3.5-5.0); Alkaline Phosphatase 72 U/L (39-117); Anion Gap 11 (12-20); Aspartate Amino Transferase 27 U/L (5-37); Bilirubin Direct 0.2 mg/dL (0.0-0.5); Bilirubin Total 0.5 mg/dL (0.0-1.0); Blood Urea Nitrogen 17 mg/dL (9-16); Calcium 8.8 mg/dL (8.4-10.2); Carbon Dioxide 23 mmol/L (22-29); Chloride 109 mmol/L (96-108); Estimated Glomerular Filt Rate > 60; Ethanol < 10 mg/dL; Glucose Random 88 mg/dL (60-115); Magnesium 2.3 mg/dL (1.6-2.6); Potassium 3.9 mmol/L (3.3-5.1); Sodium 139 mmol/L (135-145); Total Protein 7.3 g/dL (6.5-8.0)
--- NOTE | 2023-07-21 16:25 | PC.NURSE ---
pt currently resting w/ eyes closed at this time. pt respirations even and unlabored. pt in no apparent distress at this time.
[2023-07-21 16:45] VITALS: BP 138/79; PULSE 53; RESP 16; O2SAT 96
[2023-07-21 17:46] VITALS: BP 179/97; PULSE 56; RESP 16; TEMP 36.8; O2SAT 97
--- NOTE | 2023-07-21 18:16 | PC.NURSE ---
pt resting comfortably on stretcher w/ eyes closed. respirations even and unlabored. vss and up to date.
[2023-07-21 21:32] VITALS: BP 190/98; PULSE 60; RESP 17; TEMP 36.9; O2SAT 98
[2023-07-22 00:29] LABS: Appearance Urine Clear; Color Urine Yellow; Glucose Urine UA Negative (Negative); Leukocyte Esterase Urine Moderate (2+) (Negative); Nitrite Urine Negative (Negative); UMIC TRIGGER UACC YES; Urine Blood Negative (Negative); Urine Ketones Trace mg/dL (Negative); Urine Protein Trace mg/dL (Neg-Trace)
[2023-07-22 00:35] LABS: Amphetamine Screen Urine Not Detected (Not Detect); Barbiturates, Urine Not Detected (Not Detect); Benzodiazepines Screen Urine POSITIVE (Not Detect); Cannabinoid Screen Urine POSITIVE (Not Detect); Cocaine Screen Urine POSITIVE (Not Detect); Fentanyl, urine POSITIVE (Not Detect); Opiate Screen Urine POSITIVE (Not Detect); Phencyclidine Screen Urine Not Detected (Not Detect)
[2023-07-22 00:37] LABS: Bacteria Urine Trace (None Seen); UACC Culture Trigger YES
--- OUTSIDE RECORDS SUMMARY | 2023-07-22 01:01 | XMS_ITS | Continuity of Care Document ---
Author Name Unknown Organization [facility] Address [address] [place] [id number]- Care Team Providers Care Superintendent Renting Managing Name Role Phone Tanner Muniz MD Primary Care Physician [phone] [id number] Date[facility]13[facility] - 04/18/22 [facility] [address] [id number] Attending Physician: Isaías Bar MD Admitting [...]
--- OUTSIDE RECORDS SUMMARY | 2023-07-22 01:01 | XMS_ITS | Continuity of Care Document ---
Author Name Unknown Organization [facility] ter Address [address] [place] [id number]- Care Team Providers Care Medical Clerical Assistant Name Role Phone Tanner Muniz MD Primary Care Physician [facility] [id number] Date(s): 08/01/22 - 09/05/[address] [address] Attending Physician: Isaías Bar MD Admitting [...] capsule, 3 Refills, Maintenance, 08/06/22 8:54:00 EDT, [facility], home delivery- [address] [place] [address]; [phone], 175.2, cm, 07/30/22 9:11:00 EDT, Height Start [...] Name: Tanner Muniz MD Address: Address: [address] [place], [place] [address]
--- OUTSIDE RECORDS SUMMARY | 2023-07-22 01:02 | XMS_ITS | Continuity of Care Document ---
Author Name Unknown Organization [facility] Address [address] [place] [address]- Care Team Providers Care Maintenance Millwright Name Role Phone Tanner Muniz MD Primary Care Physician [phone] Encounter [facility] Date(s): 07/30/22 - 08/29/22 [facility] [address] [address] Attending Physician: Carmelo Christiansen Admitting [...] capsule, 3 Refills, Maintenance, 08/06/22 8:54:00 EDT, [facility], home delivery- [address] [facility]; [phone], 175.2, cm, 07/30/22 9:11:00 EDT, Height Start [...] Problem List Condition Confirmation Course Effective Dates [facility] Informant Latent tuberculosis 1 Confirmed Active Low back pain Confirmed Active 1Rifampin 600 mg qd x 4 months ordered- #1 bottle to be dispensed Social History Social History Type Response Smoking Status Never smoker entered on: 08/14/17 Sex Patient Care team information Personnel Name: Tanner Muniz MD Address: Address: [address] [place] [address]
--- OUTSIDE RECORDS SUMMARY | 2023-07-22 01:02 | XMS_ITS | Continuity of Care Document ---
Author Name Unknown Organization [facility] ter Address [address] [place] [id number]- Care Team Providers Care Front Desk Auxiliary Name Role Phone Tanner Muniz MD Primary Care Physician Encounter [facility] Date(s): 06/05/22 - 06/05/[address] [address]- Attending Physician: Isaías Bar MD Allergies, Adverse [...]
--- OUTSIDE RECORDS SUMMARY | 2023-07-22 01:02 | XMS_ITS | Continuity of Care Document ---
Author Name Unknown Organization [facility] Address [address] [place] [address]- Care Team Providers Care Dry Clipper Tender Name Role Phone Tanner Muniz MD Primary Care Phys[id number] Date(s): 01/09/22 - 02/14/22 [facility] [address] [address] Attending Physician: Isaías Bar [...]
--- OUTSIDE RECORDS SUMMARY | 2023-07-22 01:04 | XMS_ITS | Continuity of Care Document ---
Author Name Unknown Organization [facility] Address [address] [place] [address]- Care Team Providers Care Crown Pouncer Name Role Phone Tanner Muniz MD Primary Care Physician [phone] Encounter [facility] Date(s): 09/16/22 - 10/16/22 [facility] [address] [address] Attending Physician: Carmelo Christiansen Admitting Physician: AdmCarmelo [...] capsule, 3 Refills, Maintenance, 08/06/22 8:54:00 EDT, [facility], home delivery- [address] [place] [address]; [phone], 175.2, cm, 07/30/22 9:11:00 EDT, Height Start [...] [facility] Outreach Member Role: PCP Address: Address: [address] [place] [id number]- Care Team Related Persons Name: DEBORAH PIZARRO JR
[2023-07-22 01:18] VITALS: BP 178/89; PULSE 78; RESP 16; O2SAT 96
== END 2023-07-22 01:37 | disposition home or self-care (01) ==
PROVIDERS: Physician Assistant; Emergency Provider Student in an Organized Health Care Education/Training Program
DX: F19.10 Other psychoactive substance abuse, uncomplicated (principal); R29.6 Repeated falls; R53.83 Other fatigue; F17.210 Nicotine dependence, cigarettes, uncomplicated; Z79.899 Other long term (current) drug therapy
CPT/HCPCS: 36415; 70450; 72125; 80048; 80076; 80307; 81001; 83735; 85025; 87086; 99284

== ENCOUNTER 2023-08-12 02:05 | Emergency (ER) | payer OTHER, MEDICAID, SELFPAY ==
--- NOTE | ~2023-08-12 | XR_ITS ---
EXAMINATION: XR CHEST CLINICAL INFORMATION: Chest pain. COMPARISON: 11/28/2021. TECHNIQUE: Frontal view of the chest was obtained. FINDINGS: The cardiomediastinal silhouette is stable. There is bilateral mid to lower lung field increased markings and patchy lower lung field infiltrative change. There are no significant pleural effusions. The bony structures and soft tissues are unremarkable. XR/XR chest 1V IMPRESSION: Bilateral mid to lower lung field increased markings and patchy lower lung field infiltrative change. Consider interstitial and early pulmonary edema versus atypical bilateral pneumonia.
--- NOTE | ~2023-08-12 | CT_ITS ---
EXAMINATION: CT ABDOMEN AND PELVIS WITHOUT CONTRAST CLINICAL INFORMATION: Flank pain. COMPARISON: None available. TECHNIQUE: Multidetector volumetric imaging was performed from the superior aspect of the liver through the pubic symphysis. Sagittal and coronal reformatted images were obtained on the technologist's workstation. This CT examination was performed using dose optimization techniques as appropriate, variously including the following: *Automated exposure control *Adjustment of mA and/or kV according to patient size (this includes techniques or standardized protocols for targeted exams where dose is matched to indication/reason for exam; i.e. extremities or head) *Use of iterative reconstruction technique DLP: 339 mGy-cm FINDINGS: Study is limited due to lack of oral and IV contrast and minimal intra-abdominal fat. LUNG BASES: There is lower lung field emphysematous change with posterior interstitial coarsening. There is are faint right lung base opacities/infiltrates. LIVER, GALLBLADDER, AND BILIARY TREE: The liver is normal in size, shape, and attenuation. No focal hepatic lesion or biliary ductal dilatation is present. The gallbladder is unremarkable with no evidence of radiopaque gallstones, gallbladder wall thickening, or obvious pericholecystic inflammatory changes. PANCREAS: Unremarkable. SPLEEN: Unremarkable. ADRENAL GLANDS: Unremarkable. KIDNEYS AND URETERS: The kidneys are normal in size, shape, and attenuation. No hydronephrosis, hydroureter, or calculi seen. No perinephric stranding. BLADDER: Unremarkable. GASTROINTESTINAL TRACT: There is retained stool throughout the colon. The appendix is visualized and is within normal limits. ABDOMINAL WALL: No significant hernia is appreciated. LYMPH NODES: Normal. VASCULAR: There is atherosclerotic plaque of the abdominal aorta and proximal branches. PELVIC VISCERA: The prostate gland is enlarged measuring 5.1 x 4.3 x 6.3 cm. OSSEOUS STRUCTURES: Unremarkable. CT/CT abdomen pelvis wo IV con IMPRESSION: The study is limited due to lack of oral and IV contrast as well as minimal intra-abdominal fat. There is retained stool throughout the colon. Lower lung field emphysematous change. There is a possible infiltrate/pneumonia right lower lobe. Correlation needed. Fleischner guidelines were followed.
--- NOTE | 2023-08-12 02:10 | ECG_ITS ---
Test Reason : CP Blood Pressure : / mmHG Vent. Rate : 066 BPM Atrial Rate : 066 BPM P-R Int : 126 ms QRS Dur : 090 ms QT Int : 466 ms P-R-T Axes : 086 074 075 degrees QTc Int : 488 ms Sinus rhythm with Premature supraventricular complexes Moderate voltage criteria for LVH, may be normal variant ( Sokolow-Miles , David product ) Prolonged QT Abnormal ECG When compared with ECG of 12-NOV-2010 15:17, Premature supraventricular complexes are now Present QT has lengthened Referred By: Generic ED Physician Electronically Signed By:PRIYA IRWIN
[2023-08-12 02:19] VITALS: BP 176/89; BP 186/90; PULSE 62; RESP 24; TEMP 37.2; O2SAT 95; O2SAT 98; BMI 22.3
[2023-08-12 02:42] LABS: MANUAL DIFF FLAG NO
[2023-08-12 02:43] LABS: Basophils Percent Auto 0.5 % (0-2); Eosinophils Absolute Auto 0.1 X10*3/uL (0.0-0.4); Eosinophils Percent Auto 0.6 % (0-4); Hemoglobin 12.3 g/dl (14.0-18.0); Imm Gran Abs Auto 0.03 X10*3/uL (0.00-0.03); Imm Gran Pct Auto 0.4 % (0.0-0.4); Lymphocytes Absolute Auto 1.5 X10*3/uL (1.2-4.9); Lymphocytes Percent Auto 18.3 % (20-40); Mean Corpuscular HGB Conc 34.2 g/dl (31.0-36.0); Mean Corpuscular Hemoglobin 31.5 pg (27.0-33.0); Mean Corpuscular Volume 92.3 fL (80.0-98.0); Mean Platelet Volume 9.6 fL (9.4-12.4); Monocytes Absolute Auto 0.5 X10*3/uL (0.1-1.2); Monocytes Percent Auto 6.7 % (2-11); Neutrophils Absolute Auto 5.9 x10*3/uL (2.0-8.3); Neutrophils Percent Auto 73.5 % (45-73); Platelet Count 198 X10*3/uL (160-400); Red Cell Distribution Width 12.2 % (11.0-16.0)
[2023-08-12 02:58] LABS: Alanine Aminotransferase 19 U/L (0-40); Albumin Level 3.5 g/dL (3.5-5.0); Alkaline Phosphatase 72 U/L (39-117); Anion Gap 13 (12-20); Aspartate Amino Transferase 28 U/L (5-37); Bilirubin Total 0.6 mg/dL (0.0-1.0); Blood Urea Nitrogen 15 mg/dL (9-16); Carbon Dioxide 27 mmol/L (22-29); Chloride 101 mmol/L (96-108); Creatinine Clr Calc Pharmacy 89.8; Estimated Glomerular Filt Rate > 60; Glucose Random 127 mg/dL (60-115); Potassium 3.7 mmol/L (3.3-5.1); Sodium 137 mmol/L (135-145); Total Protein 7.2 g/dL (6.5-8.0)
[2023-08-12 03:03] LABS: Troponin-I High Sensitivity 8.1 ng/L (<3.5-35.0)
--- NOTE | 2023-08-12 03:53 | ED.CHESTPAIN ---
HPI - Chest Pain General Chief Complaint: Chest Pain Stated Complaint: CP COUGH 1XMONTH Time Seen by Provider: 08/12/23 03:51 Source: patient and EMS Mode of arrival: EMS Limitations: no limitations History of Present Illness HPI narrative: 67-year-old male, homeless, substance abuse presents with left flank pain. Symptoms started today. The pain is intermittent. It is sharp. Patient were rates it as moderate to severe. There is no clear relieving or exacerbating features. He denies any urinary frequency, urgency or dysuria. He does report some uncontrolled movements and recent cocaine use. Patient denies any chest pain, shortness of breath. Does admit to a cough. The cough is nonproductive. Related Data Previous Rx's Medication Instructions Recorded amoxicillin 875 mg-potassium 1 tab PO BID #20 tabs 07/12/23 clavulanate 125 mg tablet ibuprofen 600 mg tablet 600 mg PO Q6H PRN pain #20 tabs 07/12/23 cephalexin 500 mg capsule 500 mg PO QID 7 days #28 caps 07/22/23 amoxicillin 875 mg tablet 875 mg PO Q12H #14 tabs 08/12/23 docusate sodium 100 mg capsule 100 mg PO BID #30 caps 08/12/23 (Colace) Allergies Allergy/AdvReac Type Severity Reaction Status Date / Time No Known Allergies Allergy Unverified 07/22/23 07:10 Review of Systems Review of Systems: CONSTITUTIONAL: Denies weight loss, fever and chills. HEENT: Denies changes in vision and hearing. RESPIRATORY: Denies SOB and cough. CV: Denies palpitations + CP. GI: + abdominal pain,- nausea, vomiting and diarrhea. : Denies dysuria and urinary frequency. MSK: Denies myalgia and joint pain. SKIN: Denies rash and pruritus. NEUROLOGICAL: Denies headache and syncope. PSYCHIATRIC: Denies recent changes in mood. Denies anxiety and depression. All other ROS are negative unless in HPI PMFSH Past Medical History Surgical History (System 07/22/23 @ 07:10 by Onelia Almanza) H/O hernia repair Family History Family History (System 07/22/23 @ 07:10 by Onelia Almanza) Father Diabetes Social History Social History (System 07/22/23 @ 07:10 by Onelia Almanza) Household Members: Significant Other Housing: Apartment Alcohol intake: current Alcohol intake frequency: 0-2 drinks per day Tobacco use type: Cigarette Cigarettes Per Day: 20 Smoked in Last 30 Days: Yes Use of substances other than those prescribed or required for medical reasons: Yes Substance Use Type: Crack/Cocaine and Heroin Advance Directives: No Advance Directives Information Provided: Yes Physical Exam Vital Signs: Vital Signs: Last Vital Signs Temp 98.4 F 08/12/23 04:14 Pulse 59 08/12/23 04:14 Resp 19 08/12/23 04:14 BP 159/78 H 08/12/23 04:14 Pulse Ox 95 08/12/23 04:14 O2 Del Method Room Air 08/12/23 04:14 BMI result Body Mass Index 22.3 GEN: Well developed, no acute distress, alert, oriented HEENT: Normocephalic, atraumatic, normal external ears, nose appears normal, no oropharyngeal edema or exudates Eyes: Normal to appearance Neck: Supple, no lymphadenopathy Respiratory: Talks in complete sentences, no respiratory distress, clear to auscultation bilaterally Cardiovascular: Regular rate and rhythm, no murmurs rubs or gallops Abdomen: Soft, nontender, nondistended, no guarding, no rebound Back: + CVA tenderness Extremities: No clubbing cyanosis or edema Neurologic: No focal neurologic deficits, cranial nerves 2-12 intact, strength is 5/5 bilaterally Skin: No rash Course Reevaluation(s) Reevaluation #1: Patient's pain is currently controlled. He is resting comfortably. Appears that he may have a combination of constipation a possible right lower lobe pneumonia. Patient has an oxygen saturation of 95% on room air. Does not have a white count or left shift. He denies any chest pain on the right side. He does not have complain of any cough or mucus production. However, patient does have history of substance abuse. Will treat for possible pneumonia given certain risk factors. I will discharge the patient at this time. Time: 06:00 Medications Administered Discontinued Medications Generic Name Dose Route Start Last Admin Trade Name Freq PRN Reason Stop Dose Admin Acetaminophen 975 mg 08/12/23 03:59 08/12/23 04:12 Acetaminophen 325 Mg Tablet PO 08/12/23 04:00 975 mg ONCE ONE Administration Medical Decision Making Medical Decision Making [facility] Narrative: Patient presents with left flank, left abdominal and left lower chest pain. Symptoms started several hours ago but have been getting progressively getting worse. They are intermittent. Examination revealed CVA tenderness on left side. He had no additional reproducible tenderness including of the abdomen without rebound or guarding. Differential diagnosis could include kidney stone, musculoskeletal pain, pyelonephritis, strain, sprain. Patient did use cocaine, 1 set of cardiac enzymes appears to be appropriate. EKG was already performed. Shows LVH with repolarization abnormality. There are no acute ST elevations or depressions. Patient additionally denies any active chest pain. Will order chest x-ray, CT scan the abdomen and pelvis, laboratory analysis including troponin. Will provide patient with analgesia. Differential Diagnosis Differential Diagnoses: The differential diagnosis associated with the presentation includes (See above) Admission/Observation Consideration of admission/observation: Escalation of care including admission/observation considered Lab Data MDM Lab Attestation statement: I reviewed the patient's lab results. 08/12/23 02:34 08/12/23 02:34 Labs: Lab Results 08/12/23 Range/Units 02:34 WBC 8.0 (4.8-10.8) X10*3/uL RBC 3.90 L (4.60-5.80) X10*6/uL Hgb 12.3 L (14.0-18.0) g/dl Hct 36.0 L (42.0-52.0) % MCV 92.3 (80.0-98.0) fL MCH 31.5 (27.0-33.0) pg MCHC 34.2 (31.0-36.0) g/dl RDW 12.2 (11.0-16.0) % Plt Count 198 (160-400) X10*3/uL MPV 9.6 (9.4-12.4) fL Immature Gran % (Auto) 0.4 (0.0-0.4) % Neut % (Auto) 73.5 H (45-73) % Lymph % (Auto) 18.3 L (20-40) % Cata[place]oula % (Auto) 6.7 (2-11) % Eos % (Auto) 0.6 (0-4) % Baso % (Auto) 0.5 (0-2) % Lymph # (Auto) 1.5 (1.2-4.9) X10*3/uL [place] # (Auto) 0.5 (0.1-1.2) X10*3/uL Eos # (Auto) 0.1 (0.0-0.4) X10*3/uL Baso # (Auto) 0.0 (0.0-0.2) X10*3/uL Abs Immat Gran (auto) 0.03 (0.00-0.03) X10*3/uL Absolute Neuts (auto) 5.9 (2.0-8.3) x10*3/uL Absolute Nucleated RBC 0.000 (0.0-0.012) X10*3/uL Nucleated RBC % (auto) 0.0 (0.0-0.2) /100WBC Sodium 137 (135-145) mmol/L Potassium 3.7 (3.3-5.1) mmol/L Chloride 101 (96-108) mmol/L Carbon Dioxide 27 (22-29) mmol/L Anion Gap 13 (12-20) BUN 15 (9-16) mg/dL Creatinine 0.72 (0.5-1.4) mg/dL Estim Creat Clear Calc 89.8 Estimated GFR > 60 Random Glucose 127 H (60-115) mg/dL Calcium 9.0 (8.4-10.2) mg/dL Total Bilirubin 0.6 (0.0-1.0) mg/dL AST 28 (5-37) U/L ALT 19 (0-40) U/L Alkaline Phosphatase 72 (39-117) U/L Troponin I High Sens 8.1 (<3.5-35.0) ng/L Total Protein 7.2 (6.5-8.0) g/dL Albumin 3.5 (3.5-5.0) g/dL Independent Interpretation I performed an independent interpretation of an: EKG (Normal sinus rhythm heart rate 66, no acute ST elevations depressions, LVH with repolarization abnormality, QTC is prolonged. No comparison available), Plain X-Ray and CT Scan (abd: NAD) Radiology Impression Discussion of test interpretation with radiology: I have reviewed the radiologist's reading. Radiologist Impression: CT/CT abdomen pelvis wo IV con IMPRESSION: The study is limited due to lack of oral and IV contrast as well as minimal intra-abdominal fat. There is retained stool throughout the colon. Lower lung field emphysematous change. There is a possible infiltrate/pneumonia right lower lobe. Correlation needed. Fleischner guidelines were followed. Independent Historian Clinical information obtained from an independent historian. History obtained from or confirmed by: EMS Prescription Management I considered prescription management with: Pain Medication Discharge Plan Discharge Clinical Impression: Acute flank pain, RLL pneumonia, Constipation Patient Disposition: Home, Self-Care Instructions: Constipation (ED), Flank Pain (ED), Pneumonia (ED) Prescriptions: New amoxicillin 875 mg tablet 875 mg PO Q12H Qty: 14 0RF docusate sodium [Colace] 100 mg capsule 100 mg PO BID Qty: 30 0RF No Action amoxicillin-pot clavulanate 875-125 mg tablet 1 tab PO BID Qty: 20 0RF ibuprofen 600 mg tablet 600 mg PO Q6H PRN (Reason: pain) Qty: 20 0RF cephalexin 500 mg capsule 500 mg PO QID 7 Days Qty: 28 0RF Referrals: Physician,Unknown J [Primary Care Provider] - (Primary care provider in 3-4 days)
[2023-08-12] MEDS: Acetaminophen 325 MG TABLET 975 MG PO (04:12)
[2023-08-12 04:14] VITALS: BP 159/78; PULSE 59; RESP 19; TEMP 36.9; O2SAT 95
[2023-08-12 06:19] VITALS: BP 164/75; PULSE 56; RESP 14; TEMP 37.2; O2SAT 94
[2023-08-12 06:26] LABS: Appearance Urine Clear; Color Urine Yellow; Glucose Urine UA Negative (Negative); Leukocyte Esterase Urine Negative (Negative); Nitrite Urine Negative (Negative); PH 6.5 (5.0-9.0); Urine Blood Negative (Negative); Urine Ketones Negative (Negative); Urine Protein Negative (Neg-Trace)
[2023-08-12 06:38] LABS: Amphetamine Screen Urine Not Detected (Not Detect); Barbiturates, Urine Not Detected (Not Detect); Benzodiazepines Screen Urine Not Detected (Not Detect); Cannabinoid Screen Urine Not Detected (Not Detect); Cocaine Screen Urine POSITIVE (Not Detect); Fentanyl, urine POSITIVE (Not Detect); Opiate Screen Urine POSITIVE (Not Detect); Phencyclidine Screen Urine Not Detected (Not Detect)
== END 2023-08-12 06:37 | disposition home or self-care (01) ==
PROVIDERS: Emergency Provider Emergency Medicine
DX: R10.9 Unspecified abdominal pain (principal); J18.1 Lobar pneumonia, unspecified organism; K59.00 Constipation, unspecified; F19.10 Other psychoactive substance abuse, uncomplicated; F17.210 Nicotine dependence, cigarettes, uncomplicated; Z79.899 Other long term (current) drug therapy
CPT/HCPCS: 36415; 71045; 74176; 80053; 80307; 81003; 84484; 85025; 93005; 99284; 99285

== ENCOUNTER 2023-12-30 04:27 | Emergency (ER) | payer OTHER, MEDICAID, SELFPAY ==
--- NOTE | 2023-12-30 | ECG_ITS ---
Test Reason : DYSPNEA Blood Pressure : / mmHG Vent. Rate : 077 BPM Atrial Rate : 077 BPM P-R Int : 124 ms QRS Dur : 132 ms QT Int : 400 ms P-R-T Axes : -25 081 031 degrees QTc Int : 452 ms Normal sinus rhythm Right bundle branch block Abnormal ECG When compared with ECG of 12-AUG-2023 02:12, Premature supraventricular complexes are no longer Present Right bundle branch block is now Present Referred By: Alex Nelson Electronically Signed By:HU MADDEN MD
--- NOTE | ~2023-12-30 | XR_ITS ---
EXAMINATION: XR chest 1V CLINICAL INFORMATION: Reason for Exam cough COMPARISON: 08/12/2023 TECHNIQUE: Single portable frontal view. Tubes and lines: None Lungs and pleura: Mild interstitial infiltrate or hilar region and lower lobes might be chronic or recurrent. Newly developed patchy opacity left lower lobe may represent lung mass versus consolidation versus bony. Heart and mediastinum: The mediastinum is within normal limits.. Bones/soft tissue: Skeletal structures included are normal for patient's age. XR/XR chest 1V IMPRESSION: 1. Newly developed patchy opacity left lower lobe may represent lung mass versus consolidation versus bony. Attention to follow-up chest PA and lateral or further characterization with low-dose chest CT recommended. 2. Underlying mild interstitial infiltrate or chronic or recurrent. 3. No pleural effusion.
[2023-12-30 04:32] VITALS: BP 220/110; PULSE 70; O2SAT 97
[2023-12-30 04:33] VITALS: BP 205/91; PULSE 85; RESP 26; TEMP 38.4; O2SAT 97; BMI 22.5
--- NOTE | 2023-12-30 04:46 | ED.URI ---
HPI - URI/Sore Throat General Chief Complaint: Upper Respiratory Symptoms Stated Complaint: COUGH, CHEST PAIN Time Seen by Provider: 12/30/23 04:42 Source: patient and EMS Mode of arrival: EMS Limitations: no limitations History of Present Illness HPI Narrative: 68-year-old male came in by ambulance for evaluation of coughing, subjective fever, headache, sore throat, and runny nose. Has been with productive cough with greenish sputum for the past 2 days, patient also feels chest tightness. Related Data Previous Rx's Medication Instructions Recorded amoxicillin 875 mg-potassium 1 tab PO BID #20 tabs 07/12/23 clavulanate 125 mg tablet ibuprofen 600 mg tablet 600 mg PO Q6H PRN pain #20 tabs 07/12/23 cephalexin 500 mg capsule 500 mg PO QID 7 days #28 caps 07/22/23 amoxicillin 875 mg tablet 875 mg PO Q12H #14 tabs 08/12/23 docusate sodium 100 mg capsule 100 mg PO BID #30 caps 08/12/23 (Colace) albuterol sulfate 90 mcg/actuation 2 puff inhalation Q6H PRN 12/30/23 aerosol inhaler shortness of breath or wheezing #8.5 grams prednisone 20 mg tablet 20 mg PO BID #10 tabs 12/30/23 Allergies Allergy/AdvReac Type Severity Reaction Status Date / Time No Known Allergies Allergy Unverified 07/22/23 07:10 Review of Systems Review of Systems: All other systems are reviewed and are negative Constitutional: Reports as per HPI and Reports no additional constitutional complaints Eyes: Reports as per HPI and Reports no additional eye complaints Reports system reviewed and no additional complaints, except as documented Cardiovascular: Reports as per HPI and Reports no additional cardiovascular complaints Respiratory: Reports as per HPI and Reports no additional respiratory complaints Gastrointestinal: Reports as per HPI and Reports no additional gastrointestinal complaints Genitourinary: Reports no additional female genitourinary complaints Musculoskeletal: Reports no additional musculoskeletal complaints Skin/Breast: Reports system reviewed and no additional complaints, except as docu Psychiatric: Reports no additional psychiatric complaints Endocrine: Reports no additional endocrine complaints Hematologic/Lymphatic: Reports no additional hematologic/lymphatic complaints Allergic/Immunologic: Reports no additional allergic/immunologic complaints Reports system reviewed and no additional complaints, except as documented and Reports Abnormal speech present [facility] Past Medical History Surgical History H/O hernia repair Family History Family History Father Diabetes Social History Social History Household Members: Significant Other Housing: Apartment Alcohol intake: current Alcohol intake frequency: holidays/special occasions only Tobacco use type: Cigarette Cigarettes Per Day: 20 Smoked in Last 30 Days: Yes Use of substances other than those prescribed or required for medical reasons: No Substance Use Type: Crack/Cocaine and Heroin Advance Directives: No Advance Directives Information Provided: Yes Physical Exam Vital Signs: Vital Signs: Last Vital Signs Temp 101.1 F H 12/30/23 04:33 Pulse 77 12/30/23 05:51 Resp 20 12/30/23 05:51 BP 183/86 H 12/30/23 05:51 Pulse Ox 97 12/30/23 05:51 O2 Del Method Room Air 12/30/23 05:51 BMI result Body Mass Index 22.5 Vital signs have been reviewed and appear to be correct. Blood pressure elevated. Heart rate elevated, Respiratory rate elevated, febrile. Oxygen saturation normal. Appearance: Alert. Oriented X3. No acute distress. Head: Normal external exam. Normocephalic. Atraumatic. No Barker signs noted. No raccoon eyes noted Eyes: PERRLA. EOMI. Conjunctiva and sclera normal. Eyelids normal. ENT: TM's Normal. Pharynx normal. Uvula midline. Moist mucous membranes. No trismus noted. No drooling noted. No muffled voice noted. Neck: Normal inspection. Neck supple. FROM. No adenopathy. Thyroid Normal. No meningeal signs. No neck mass noted. CVS: Normal heart rate and rhythm. Heart sound normal. No murmurs noted. Pulses normal throughout. Respiratory: No respiratory distress. Painless inspiration. Bilateral expiratory wheezing with prolonged expiration, Chest nontender. No accessory muscle usage noted or decreased air movement noted. Abdomen: Soft and nontender. Bowel sounds normal in all 4 quadrants. No distention noted. No organomegaly noted. No visible injury noted. Back: No CVA tenderness. Full range of motion noted. Skin: Skin warm and dry. Normal skin color. Normal skin turgor. No rashes/lesions/lacerations noted. Extremities: No lower extremity edema. Extremities exhibit normal range of motion. Extremities nontender. Neuro: Oriented X 3. Cranial nerve exam: II-XII are grossly intact No motor deficit. No sensory deficit. Reflexes normal. Course Reevaluation(s) Reevaluation #1: Positive for influenza A, viral bronchitis, start on bronchodilator, take NSAIDs if needed to relieve his symptoms, stay home, self quarantine, frequent hand washing, use face mask at all times Time: 06:08 Medical Decision Making Differential Diagnosis Differential Diagnoses: The differential diagnosis associated with the presentation includes (Pneumonia, bronchitis, asthma exacerbation, influenza, RSV, COVID-19 infection, electrolyte derangements, severe anemia.) Admission/Observation Consideration of admission/observation: Escalation of care including admission/observation considered Lab Data MDM Lab Attestation statement: I reviewed the patient's lab results. 12/30/23 04:54 12/30/23 04:54 Labs: Lab Results 12/30/23 Range/Units 04:54 WBC 7.9 (4.8-10.8) X10*3/uL RBC 4.96 D (4.60-5.80) X10*6/uL Hgb 15.1 D (14.0-18.0) g/dl Hct 45.2 D (42.0-52.0) % MCV 91.1 (80.0-98.0) fL MCH 30.4 (27.0-33.0) pg MCHC 33.4 (31.0-36.0) g/dl RDW 12.7 (11.0-16.0) % Plt Count 191 (160-400) X10*3/uL MPV 9.7 (9.4-12.4) fL Immature Gran % (Auto) 0.3 (0.0-0.4) % Neut % (Auto) 78.6 H (45-73) % Lymph % (Auto) 13.7 L (20-40) % [place] % (Auto) 6.6 (2-11) % Eos % (Auto) 0.4 (0-4) % Baso % (Auto) 0.4 (0-2) % Lymph # (Auto) 1.1 L (1.2-4.9) X10*3/uL [place] # (Auto) 0.5 (0.1-1.2) X10*3/uL Eos # (Auto) 0.0 (0.0-0.4) X10*3/uL Baso # (Auto) 0.0 (0.0-0.2) X10*3/uL Abs Immat Gran (auto) 0.02 (0.00-0.03) X10*3/uL Absolute Neuts (auto) 6.2 (2.0-8.3) x10*3/uL Absolute Nucleated RBC 0.000 (0.0-0.012) X10*3/uL Nucleated RBC % (auto) 0.0 (0.0-0.2) /100WBC Sodium 137 (135-145) mmol/L Potassium 4.0 (3.3-5.1) mmol/L Chloride 99 (96-108) mmol/L Carbon Dioxide 26 (22-29) mmol/L Anion Gap 16 (12-20) BUN 13 (9-16) mg/dL Creatinine 0.82 (0.5-1.4) mg/dL Estim Creat Clear Calc 78.4 Estimated GFR > 60 Random Glucose 115 (60-115) mg/dL Calcium 8.6 (8.4-10.2) mg/dL Total Bilirubin 0.5 (0.0-1.0) mg/dL AST 26 (5-37) U/L ALT 17 (0-40) U/L Alkaline Phosphatase 75 (39-117) U/L Troponin I High Sens 7.7 (<3.5-35.0) ng/L Total Protein 8.4 H (6.5-8.0) g/dL Albumin 3.9 (3.5-5.0) g/dL Influenza Type A (PCR) POSITIVE A (Negative) Influenza Type B (PCR) NEGATIVE (Negative) RSV RNA Qual (PCR) NEGATIVE (Negative) SARS-CoV-2 RNA (RT-PCR) NEGATIVE (Negative) S. pyogenes GrpA BRIAN Negative (Negative) Independent Interpretation I performed an independent interpretation of an: Plain X-Ray (Chest: No acute pulmonary infiltrate.) Radiology Impression Discussion of test interpretation with radiology: I have reviewed the radiologist's reading. Chronic Conditions Patient?s care impacted by: Other (Smoker and chronic asthma.) Discharge Plan Discharge Clinical Impression: Influenza, Bronchitis Patient Disposition: Home, Self-Care Instructions: Influenza (ED), Acute Bronchitis (ED) Prescriptions: New prednisone 20 mg tablet 20 mg PO BID Qty: 10 0RF albuterol sulfate 90 mcg/actuation HFA aerosol inhaler 2 puff inhalation Q6H PRN (Reason: shortness of breath or wheezing) Qty: 8.5 0RF No Action amoxicillin-pot clavulanate 875-125 mg tablet 1 tab PO BID Qty: 20 0RF ibuprofen 600 mg tablet 600 mg PO Q6H PRN (Reason: pain) Qty: 20 0RF cephalexin 500 mg capsule 500 mg PO QID 7 Days Qty: 28 0RF amoxicillin 875 mg tablet 875 mg PO Q12H Qty: 14 0RF docusate sodium [Colace] 100 mg capsule 100 mg PO BID Qty: 30 0RF
[2023-12-30 05:03] LABS: MANUAL DIFF FLAG NO
[2023-12-30 05:04] LABS: Basophils Percent Auto 0.4 % (0-2); Eosinophils Percent Auto 0.4 % (0-4); Hematocrit 45.2 % (42.0-52.0); Hemoglobin 15.1 g/dl (14.0-18.0); Imm Gran Abs Auto 0.02 X10*3/uL (0.00-0.03); Imm Gran Pct Auto 0.3 % (0.0-0.4); Lymphocytes Absolute Auto 1.1 X10*3/uL (1.2-4.9); Lymphocytes Percent Auto 13.7 % (20-40); Mean Corpuscular HGB Conc 33.4 g/dl (31.0-36.0); Mean Corpuscular Hemoglobin 30.4 pg (27.0-33.0); Mean Corpuscular Volume 91.1 fL (80.0-98.0); Mean Platelet Volume 9.7 fL (9.4-12.4); Monocytes Absolute Auto 0.5 X10*3/uL (0.1-1.2); Monocytes Percent Auto 6.6 % (2-11); Neutrophils Absolute Auto 6.2 x10*3/uL (2.0-8.3); Neutrophils Percent Auto 78.6 % (45-73); Platelet Count 191 X10*3/uL (160-400); Red Blood Count 4.96 X10*6/uL (4.60-5.80); Red Cell Distribution Width 12.7 % (11.0-16.0); White Blood Count 7.9 X10*3/uL (4.8-10.8)
[2023-12-30 05:12] LABS: IDNOW Serial# 08D9AD1C; Strep A Nucleic Acid Negative (Negative)
[2023-12-30 05:13] VITALS: PULSE 76; RESP 24; O2SAT 98
--- NOTE | 2023-12-30 05:18 | PC.NURSE ---
Dr. Nelson aware of vitals/temp possibly meeting sepsis criteria vs URI. labs drawn iv established. resting comfortably. call saez within reach.
[2023-12-30 05:19] LABS: Alanine Aminotransferase 17 U/L (0-40); Albumin Level 3.9 g/dL (3.5-5.0); Alkaline Phosphatase 75 U/L (39-117); Anion Gap 16 (12-20); Aspartate Amino Transferase 26 U/L (5-37); Bilirubin Total 0.5 mg/dL (0.0-1.0); Blood Urea Nitrogen 13 mg/dL (9-16); Calcium 8.6 mg/dL (8.4-10.2); Carbon Dioxide 26 mmol/L (22-29); Chloride 99 mmol/L (96-108); Creatinine Clr Calc Pharmacy 78.4; Estimated Glomerular Filt Rate > 60; Glucose Random 115 mg/dL (60-115); Sodium 137 mmol/L (135-145); Total Protein 8.4 g/dL (6.5-8.0)
[2023-12-30 05:23] LABS: Troponin-I High Sensitivity 7.7 ng/L (<3.5-35.0)
[2023-12-30 05:42] LABS: Influenza A PCR POSITIVE (Negative); Influenza B PCR NEGATIVE (Negative); Resp Syncy Virus RNA Qual PCR NEGATIVE (Negative); SARS COV2 PCR INHOUSE NEGATIVE (Negative)
[2023-12-30 05:51] VITALS: BP 183/86; PULSE 77; RESP 20; O2SAT 97
[2023-12-30] MEDS: Acetaminophen 325 MG TABLET 650 MG PO (06:53)
== END 2023-12-30 09:34 | disposition home or self-care (01) ==
PROVIDERS: Emergency Provider Emergency Medicine
DX: J10.1 Influenza due to other identified influenza virus with other respiratory manifestations (principal); J40 Bronchitis, not specified as acute or chronic; R05.9 Cough, unspecified; R07.89 Other chest pain; R50.9 Fever, unspecified; R51.9 Headache, unspecified; R09.89 Other specified symptoms and signs involving the circulatory and respiratory systems; Z20.822 Contact with and (suspected) exposure to COVID-19; Z11.52 Encounter for screening for COVID-19
CPT/HCPCS: 0241U; 71045; 80053; 84484; 85025; 87651; 93005; 99283; 99285

== ENCOUNTER → 2023-12-30 05:01 | Outpatient (BNV) | payer OTHER, MEDICAID, SELFPAY | PROVIDERS: Emergency Provider Emergency Medicine; Visit Provider Internal Medicine Cardiovascular Disease | DX: R94.31 Abnormal electrocardiogram [ECG] [EKG] (principal); R06.00 Dyspnea, unspecified | CPT/HCPCS: 93010 ==

== ENCOUNTER 2024-01-04 10:49 | Emergency (ER) | payer OTHER, MEDICAID, SELFPAY ==
--- NOTE | 2024-01-04 | ECG_ITS ---
Test Reason : CP Blood Pressure : / mmHG Vent. Rate : 061 BPM Atrial Rate : 061 BPM P-R Int : 122 ms QRS Dur : 146 ms QT Int : 464 ms P-R-T Axes : 054 073 024 degrees QTc Int : 467 ms Normal sinus rhythm Right bundle branch block Minimal voltage criteria for LVH, may be normal variant ( Sokolow-Miles ) Abnormal ECG When compared with ECG of 30-DEC-2023 05:01, No significant change was found Referred By: Generic ED Physician Electronically Signed By:DICKSON JEAN
--- NOTE | ~2024-01-04 | CT_ITS ---
EXAMINATION: CT CHEST WITHOUT CONTRAST CLINICAL INFORMATION: Follow-up abnormal chest x-ray COMPARISON: Chest radiograph from 12/30/[address] chest from 12/12/1999 TECHNIQUE: Multidetector volumetric CT imaging of the chest was done. Axial MIP volume rendering provided. Sagittal and coronal reformatted images were obtained. This CT examination was performed using dose optimization techniques as appropriate, variously including the following: *Automated exposure control *Adjustment of mA and/or kV according to patient size (this includes techniques or standardized protocols for targeted exams where dose is matched to indication/reason for exam; i.e. extremities or head) *Use of iterative reconstruction technique DLP: 208 mGy-cm FINDINGS: Examination is limited due to respiratory motion BRAND COORDINATOR: Unremarkable LUNGS: There are severe changes of emphysema. With patchy airspace disease in lingula and left lower lobe there is 0.5 cm left lower lobe nodules seen on image 426 series 6. Groundglass opacity nodule in the left lower lobe measured 0.6 cm seen on image 438, MEDIASTINUM: There is mild mediastinal lymphadenopathy. The aorta is nondilated. There is no pericardial effusion. CORONARY ARTERY CALCIFICATION: Moderate. PLEURA: There is no pleural effusion. No pleural mass or thickening. AXILLA: No lymphadenopathy. UPPER ABDOMEN: Unremarkable. OSSEOUS STRUCTURES: Unremarkable. CT/CT chest wo IV con IMPRESSION: 1. Severe changes of emphysema with patchy airspace disease in the lingula and left lower lobe. 2. Left lower lobe lung nodules. 3. Mild mediastinal lymphadenopathy. 4. Moderate coronary artery calcifications. Fleischner guidelines were followed.
[2024-01-04 10:54] VITALS: BP 183/88; PULSE 66; RESP 18; TEMP 36.7; O2SAT 100; BMI 21.3
--- NOTE | 2024-01-04 11:11 | ED.GENADULT ---
HPI - General Adult General Chief complaint: General Medical Stated complaint: Called and told to come in? Time Seen by Provider: 01/04/24 11:05 Source: patient and sandblaster glass Mode of arrival: ambulatory Limitations: no limitations History of Present Illness HPI narrative: 68-year-old male a smoker was seen recently in the emergency department had abnormal reading of the chest x-ray the official reading was not available at the time of discharging the patient x-ray is questioning a lung mass since the patient has no PCP I called the patient to return to the emergency department to get CT of the chest to rule out lung mass. Related Data Previous Rx's Medication Instructions Recorded amoxicillin 875 mg-potassium 1 tab PO BID #20 tabs 07/12/23 clavulanate 125 mg tablet ibuprofen 600 mg tablet 600 mg PO Q6H PRN pain #20 tabs 07/12/23 cephalexin 500 mg capsule 500 mg PO QID 7 days #28 caps 07/22/23 amoxicillin 875 mg tablet 875 mg PO Q12H #14 tabs 08/12/23 docusate sodium 100 mg capsule 100 mg PO BID #30 caps 08/12/23 (Colace) albuterol sulfate 90 mcg/actuation 2 puff inhalation Q6H PRN 12/30/23 aerosol inhaler shortness of breath or wheezing #8.5 grams prednisone 20 mg tablet 20 mg PO BID #10 tabs 12/30/23 Allergies Allergy/AdvReac Type Severity Reaction Status Date / Time No Known Allergies Allergy Unverified 07/22/23 07:10 Review of Systems Review of Systems: All other systems are reviewed and are negative Constitutional: Reports as per HPI and Reports no additional constitutional complaints Eyes: Reports as per HPI and Reports no additional eye complaints Reports system reviewed and no additional complaints, except as documented Cardiovascular: Reports as per HPI and Reports no additional cardiovascular complaints Respiratory: Reports as per HPI and Reports no additional respiratory complaints Gastrointestinal: Reports as per HPI and Reports no additional gastrointestinal complaints Genitourinary: Reports no additional female genitourinary complaints Musculoskeletal: Reports no additional musculoskeletal complaints Skin/Breast: Reports system reviewed and no additional complaints, except as docu Psychiatric: Reports no additional psychiatric complaints Endocrine: Reports no additional endocrine complaints Hematologic/Lymphatic: Reports no additional hematologic/lymphatic complaints Allergic/Immunologic: Reports no additional allergic/immunologic complaints Reports system reviewed and no additional complaints, except as documented and Reports Abnormal speech present [facility] Past Medical History Surgical History H/O hernia repair Family History Family History Father Diabetes Social History Social History Household Members: Significant Other Housing: Apartment Alcohol intake: current Alcohol intake frequency: holidays/special occasions only Tobacco use type: Cigarette Cigarettes Per Day: 20 Substance Use Type: Crack/Cocaine and Heroin Advance Directives: No Advance Directives Information Provided: Yes Physical Exam ED Vital Signs: Vital Signs - 24 hr 01/04/24 10:54 Temperature 98.1 F Pulse Rate 66 Respiratory Rate 18 Blood Pressure 183/88 H Pulse Oximetry 100 BMI result Body Mass Index 21.3 Vital signs have been reviewed and appear to be correct. Blood pressure elevated. Heart rate normal. Respiratory rate normal. Temperature normal. Oxygen saturation normal. Appearance: Alert. Oriented X3. No acute distress. Head: Normal external exam. Normocephalic. Atraumatic. No Barker signs noted. No raccoon eyes noted Eyes: PERRLA. EOMI. Conjunctiva and sclera normal. Eyelids normal. ENT: TM's Normal. Pharynx normal. Uvula midline. Moist mucous membranes. No trismus noted. No drooling noted. No muffled voice noted. Neck: Normal inspection. Neck supple. FROM. No adenopathy. Thyroid Normal. No meningeal signs. No neck mass noted. CVS: Normal heart rate and rhythm. Heart sound normal. No murmurs noted. Pulses normal throughout. Respiratory: No respiratory distress. Painless inspiration. Breath sounds normal. No wheezes/rales/rhonchi noted. Chest nontender. No accessory muscle usage noted or decreased air movement noted. Abdomen: Soft and nontender. Bowel sounds normal in all 4 quadrants. No distention noted. No organomegaly noted. No visible injury noted. Back: No CVA tenderness. Full range of motion noted. Skin: Skin warm and dry. Normal skin color. Normal skin turgor. No rashes/lesions/lacerations noted. Extremities: No lower extremity edema. Extremities exhibit normal range of motion. Extremities nontender. Neuro: Oriented X 3. Cranial nerve exam: II-XII are grossly intact No motor deficit. No sensory deficit. Reflexes normal. Course Reevaluation(s) Reevaluation #1: Patient walked out before the result of the CT scan, patient has left lower lung nodules I called the phone number discussed the result with the patient and the need of follow-up with PCP. Time: 15:12 Medical Decision Making Differential Diagnosis Differential Diagnoses: The differential diagnosis associated with the presentation includes (Pneumonia, lung mass) Admission/Observation Consideration of admission/observation: Escalation of care including admission/observation considered Independent Interpretation I performed an independent interpretation of an: CT Scan (Chest:1. Severe changes of emphysema with patchy airspace disease in the lingula and left lower lobe. 2. Left lower lobe lung nodules. 3. Mild mediastinal lymphadenopathy. 4. Moderate coronary artery calcifications. Fle) Radiology Impression Discussion of test interpretation with radiology: I have reviewed the radiologist's reading. Discharge Plan Discharge Clinical Impression: Abnormal chest CT Patient Disposition: Left W/O Completing Treatment Prescriptions: No Action amoxicillin-pot clavulanate 875-125 mg tablet 1 tab PO BID Qty: 20 0RF ibuprofen 600 mg tablet 600 mg PO Q6H PRN (Reason: pain) Qty: 20 0RF prednisone 20 mg tablet 20 mg PO BID Qty: 10 0RF albuterol sulfate 90 mcg/actuation HFA aerosol inhaler 2 puff inhalation Q6H PRN (Reason: shortness of breath or wheezing) Qty: 8.5 0RF cephalexin 500 mg capsule 500 mg PO QID 7 Days Qty: 28 0RF amoxicillin 875 mg tablet 875 mg PO Q12H Qty: 14 0RF docusate sodium [Colace] 100 mg capsule 100 mg PO BID Qty: 30 0RF Interventions: ED Discharge Assessment Last Done: 01/04/24 14:44 Discharge Date/Time: 01/04/24 13:40
--- NOTE | 2024-01-04 13:43 | PC.NURSE ---
while waiting for results of CT scan pt walked out through door in [address] and left
== END 2024-01-04 13:40 | disposition left against medical advice (07) ==
PROVIDERS: Emergency Provider Emergency Medicine
DX: R91.8 Other nonspecific abnormal finding of lung field (principal); R07.89 Other chest pain
CPT/HCPCS: 71250; 93005; 99283; 99284

== ENCOUNTER → 2024-01-04 10:56 | Outpatient (BNV) | payer OTHER, MEDICAID, SELFPAY | PROVIDERS: Emergency Provider Emergency Medicine; Visit Provider Internal Medicine | DX: R07.9 Chest pain, unspecified (principal) | CPT/HCPCS: 93010 ==

== ENCOUNTER 2025-06-10 16:42 | Outpatient (REF) | payer OTHER, MEDICAID, SELFPAY | END 2025-06-10 16:43 | disposition home or self-care (01) | LOC: HO.LNP 16:42 | PROVIDERS: Visit Provider Nurse Practitioner Primary Care | DX: R39.9 Unspecified symptoms and signs involving the genitourinary system (principal) | CPT/HCPCS: 87086 ==

== ENCOUNTER 2025-06-16 12:47 | Outpatient (REF) | payer OTHER, MEDICAID, SELFPAY ==
--- NOTE | ~2025-06-16 | US_ITS ---
EXAMINATION: US SCROTUM CLINICAL INFORMATION: Left testicular swelling. COMPARISON: None available. TECHNIQUE: A sonogram of the scrotum was performed assessing kirkpatrick-scale appearance and color Doppler flow. Spectral Doppler analysis of the arterial and venous flow were performed in the testes bilaterally. FINDINGS: RIGHT: Right testicle measures 4.0 x 3.5 x 3.2 cm, volume 24 mL. No focal testicular parenchymal lesions are visualized. Spectral Doppler analysis of the arterial and venous flow is normal in the right testis. Right epididymal head is normal in size. Small right epididymal head cyst measuring 3 mm. No right varicocele. There is a small right hydrocele. Right epididymal Doppler flow is normal. LEFT: Left testicle measures 3.8 x 2.3 x 3.3 cm, volume 15 mL. No focal testicular parenchymal lesions are visualized. Spectral Doppler analysis of the arterial and venous flow is normal in the left testis. Left epididymal head is normal in size. There are several epididymal head cysts, the largest measuring 5.6 x 4.0 x 4.7 cm. There is mild specular debris contained within. No left varicocele. There is a small left hydrocele. Left epididymal Doppler flow is normal. US/US scrotum IMPRESSION: 1. There are multiple prominent left epididymal head cysts, the largest measuring 5.6 x 4.0 x 4.7 cm. 2. The testicles are normal bilaterally. 3. There are small hydroceles bilaterally. Electronically signed by: Hesham Verde MD 06/16/2025 01:40 PM EDT
== END 2025-06-16 12:48 | disposition home or self-care (01) ==
LOC: HO.US 12:47
PROVIDERS: PCP Nurse Practitioner Primary Care; Visit Provider Nurse Practitioner Primary Care
DX: N50.89 Other specified disorders of the male genital organs (principal)
CPT/HCPCS: 76870

== ENCOUNTER → 2025-06-16 12:52 | Outpatient (BNV) | payer OTHER, MEDICAID, SELFPAY | PROVIDERS: PCP Nurse Practitioner Primary Care; Visit Provider Radiology Diagnostic Radiology | DX: N50.3 Cyst of epididymis (principal) | CPT/HCPCS: 76870 ==

== ENCOUNTER 2025-08-10 08:51 | Outpatient (AMB) | payer OTHER, MEDICAID, SELFPAY ==
--- NOTE | 2025-08-10 09:13 | MHC.OFFVIS ---
Intake Visit Reasons: nocturia/ scrotal swelling Intake Note: New Patient is present for scrotal swelling , Nocturia Urology Rx:none Blood Thinners:none Imaging completed: scrotal ultrasound 06/16/25 Rail Specialist Required: Yes Accompanied by: Son Allergies No Known Allergies Allergy (Verified 08/10/25 09:14) HPI Comments Details: Arnav is a pleasant Occitan-speaking male. He is a patient of Dr. Enrique. He seen for the following urologic conditions - scrotal swelling - lower urinary tract symptoms Spermatocele Scrotal ultrasound 1. There are multiple prominent left epididymal head cysts, the largest measuring 5.6 x 4.0 x 4.7 cm. 2. The testicles are normal bilaterally. 3. There are small hydroceles bilaterally Lower urinary tract symptoms Flomax PFSH Surgical History H/O hernia repair Family History Father Diabetes Social History Household Members: Significant Other Housing: Apartment Alcohol intake: current Alcohol intake frequency: holidays/special occasions only Tobacco use type: Cigarette Cigarettes Per Day: 20 Substance Use Type: Crack/Cocaine and Heroin Review of Systems Const Denies chills and Denies fever(s) Card Reports no additional complaints and Denies syncope Resp Denies cough GI Denies abdominal pain and Denies heartburn Reports as per HPI and Denies change in libido Neuro Denies syncope Psych Denies change in libido Endo Denies change in libido Physical Exam Const General: cooperative, healthy appearing, comfortable and no acute distress Orientation/consciousness: patient oriented x3 HEENT Face and sinus: Yes normal facial exam Mouth: moist mucous membranes Neck Neck: Yes normal visual inspection, Yes full ROM and Yes trachea midline Chest Chest palpation & inspection: normal inspection of the chest Resp Effort & Inspection: normal respiratory effort, able to speak in complete sentences and no respiratory distress GI Inspection: Yes normal to inspection Back/Spine/Pelvis Cervical Spine: normal cervical lordosis Thoracic/Lumbar Spine: thoracic and lumbar spine normal to inspection Skin General skin exam: no rashes or lesions noted Neuro General: patient oriented x3, gait normal, tone normal and moves all extremities Extrem General: Yes normal to inspection and Yes capillary refill normal Assessment & Plan Assessment & Plan (1) Spermatocele: Code(s): N43.40 - Spermatocele of epididymis, unspecified Category: Medical (2) Weak urinary stream: Code(s): R39.12 - Poor urinary stream Category: Medical (3) Urinary hesitancy: Code(s): R39.11 - Hesitancy of micturition Category: Medical Plan Risks, benefits and alternatives to therapy were discussed. These include but are not limited to infection, bleeding, damage to local organs and tissues, need for further interventions. Anesthetic risks regarding cardiac arrhythmia, blood clots, and potential mortality were discussed. The patient understands the typical recovery time and the outpatient nature of the procedure. After consideration of these risks the patient gives full informed consent and they wish to move ahead with the procedure. - left spermatocelectomy Medications: New tamsulosin (Flomax) 0.4 mg PO BEDTIME 90 tabs 1RF 90 days R39.12 - Poor urinary stream Patient Instructions: This note is constructed using voice recognition software. While every effort has been made to ensure accuracy director retirement errors may have been included. Imaging studies, laboratory and physical exam results were discussed and reviewed in detail. No major barriers to patient understanding were identified. An opportunity to ask questions regarding the treatment plan was provided. All questions were answered. The patient expressed understanding and agreement with the above treatment plan. The patient is aware they should contact our office by phone for worsening of their current condition or the appearance of new urologic symptoms. Compliance is encouraged with any medications and followup testing that is ordered. It is a privilege to participate in the urologic care of your patient. If you have any questions or concerns regarding treatment for the above conditions, or other urologic issues, please do not hesitate to contact me. The office telephone contact is [phone]. Sincerely, Dr Javi De La Rosa MD, [facility] - Urology Compassionate Specialist Care for the Genitourinary System Coding Level of Care Code New Pt Level 4 (96949) Diagnoses Spermatocele N43.40 Weak urinary stream R39.12 Urinary hesitancy R39.11
--- OUTSIDE RECORDS SUMMARY | 2025-08-10 09:28 | XMS_ITS | Clinical Summary ---
Author Organization [employer] Address [address] [place] [address] 7t [place] [address] Care Team Providers Care Auto Brake Technician Name Role Phone Unavailable Primary Care Provider Unavailabl e Allergies No known active allergies Medications albuterol (Ventolin HFA) 108 (90 Base) MCG/ACT inhaler inhale 2 puff by inhalation route every 4 - 6 hours as needed 18 g 3 Active lisinopril-hydroC HLOROthiazide 20-25 MG tablet Take 1 tablet by mouth in the morning. 90 tablet 3 Active Blood Pressure kitIndications:El evated blood pressure reading without diagnosis of hypertension 1 each 2 times daily. 1 kit 5 06/10/20 26 Active tamsulosin (Flomax) 0.4 MG 24 hr capsuleIndication s:Nocturia Take 1 capsule (0.4 mg) by mouth Once per day. 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 Overview (06/10/2025): Rifampin 600 mg qd x 4 months ordered- #1 bottle to be dispensed Essential hypertension 08/10/2015 Tobacco dependence syndrome 09/30/2013 Lumbar radiculopathy 08/25/2013 Asthma with COPD ([facility]) 11/23/2012 Depressive disorder 11/23/2012 Hyperlipidemia 11/23/2012 Impaired fasting glucose 11/23/2012 Encounters Date Type Department Care Team Description 07/05/2025 Telephone [facility] [address] [place] [address] Tree Pacheco MD Appointment Request 07/04/2025 Telephone [facility] [address] [place] [address] Tree Pacheco MD No Show 06/16/2025 Results Follow-Up [facility] [address] [place] [address] Ambika Warner ANP US Scrotum 06/10/2025 1:40 PM EDT Office Visit [facility] [address] [place] [address] Ambika Warner ANP Elevated blood pressure reading without diagnosis of hypertension (Primary Dx); UTI symptoms; Urinary frequency; Nocturia; Testicular swelling, left; Essential hypertension; Hyperlipidemia, unspecified hyperlipidemia type; Tobacco dependence syndrome 06/10/2025 Telephone [facility] [address] [place] [address] Tree Pacheco MD 06/10/2025 Travel 06/09/2025 Travel from Last 3 Months Immunizations Immunization Administration Dates Next Due Hep A, Adult 06/08/2020 Hep B, adult 06/08/2020 Influenza injectable quadrivalent preservative f ree 11/01/2019,09/25/2015 Influenza, IIV3, injectable 08/16/2014, 2 Influenza, Split (incl. purified surface antigen ) 08/25/2013,11/23/2012 Moderna Covid-19 Vaccine 12+ 10/21/2022 Pfizer Covid-19 Vaccine 12+ Bivalent 11/05/2022 Pneumococcal Conjugate PCV 13 11/01/2019 Pneumococcal Polysaccharide PPSV23 05/10/1996 TD (adult), 2 Lf tetanus tox oid, preservative free, adsorbed 03/24/2006 Tdap 07/12/2023,08/25/2013 Social History Tobacco Use Types Packs/Day Years Used Date Smoking Tobacco: Every Day Cigarettes Smokeless Tobacco: Never Tobacco Cessation:Ready to Q uit: Not Asked; Counseling Given: Yes Comments:2-3 cigs/d Sex and Gender Information Value Date Recorded Sex Assigned at Male 09/09/2022 10:14 AM EDT Legal Sex Male 10:14 AM EDT Gender Identity Male 09/09/2022 10:14 AM EDT Sexual Orientation Straight 09/09/2022 10 :14 AM EDT Last Filed Vital Signs Vital Sign Reading Time Taken Comments Blood Pressure 156/77 06/10/2025 1:37 PM EDT Pulse 76 06/10/2025 1:37 PM EDT Temperature 36.8 C (98.2 F) 06/10/2025 1:37 PM EDT Respiratory Rate 20 06/10/2025 1:37 PM EDT Oxygen Saturation 96% 06/10/2025 1:37 PM EDT Inhaled Oxygen Concentration - - Weight 65.7 kg (144 lb 12.8 oz) 06/10/2025 1:37 PM EDT Height 177.8 cm (5' 10 ) 10/03/2021 12: 11 AM EST Body Mass Index 20.78 10/03/2021 12:11 AM EST Plan of Treatment Health Maintenance Due Date Last Done Comments CT Colonography 1954 Colonoscopy 1954 Colorectal Cancer Screening 1954 Depression Screening 1954 FIT DNA/Cologuard 1954 FIT 1954 FOBT 1954 Lipid Panel 1954 SDOH Screening 1954 Sigmoidoscopy 1954 Alcohol/Substance Use Screening 1966 RSV Patients and Patients Aged 60 years or older (1 - Risk 60-74 years 1-dose series) 2014 Zoster Vaccines (2 of 3) 09/05/2015 07/11/2015 Hepatitis B Vaccines (2 of 3 - 19+ 3-dose series) 07/06/2020 06/08/2020 Pneumococcal Vaccine: 50+ Years (3 of 3 - PCV20 or PCV21) 11/01/2024 11/01/2019, 05/10/1996 COVID-19 Vaccine ( season) 2025 11/05/2022, 10/21/2022, 11/15/2021, Additional history exists Influenza Vaccine (#1) 2025 9, 09/25/2015, 08/16/2014, Additional history exists Diabetes: Hemoglobin A1C 06/10/2026 06/10/2025 Tobacco Screening 06/10/2026 06/10/2025 DTaP/Tdap/Td Vaccines (3 - Td or Tdap) 07/12/2033 07/12/2023, 08/25/2013, 03/24/2006 Hepatitis A Vaccines Aged Out 06/08/2020 No long er eligible based on patient's age to complete this topic Hepatitis C Screening Completed 10/23/2021 HIB Vaccines Aged Out No longer eligi ble based on patient's age to complete this topic HPV Vaccines Aged Out No longer eligi ble based on patient's age to complete this topic IPV Vaccines Aged Out No longer eligi ble based on patient's age to complete this topic Meningococcal B Vaccine Aged Out No l onger eligible based on patient's age to complete this topic Meningococcal Vaccine Aged Out No casie delphine eligible based on patient's age to complete this topic RSV under 20 months Aged Out No longe r eligible based on patient's age to complete this topic Rotavirus Vaccines Aged Out No longer eligible based on patient's age to complete this topic Procedures Procedure Name Priority Date/Time Associated Diagnosis Comments US SCROTUM Urgent 06/16/2025 1:03 PM EDT Testicular swelling, left POCT GLYCATED HEMOGLOBIN, TOTAL Routine 06/10/2025 2:22 PM EDT Urinary frequency CULTURE, URINE, ROUTINE Routine 06/10/2025 2:18 PM EDT UTI symptoms POCT URINALYSIS DIPSTICK Routine 06/10/2025 1:43 PM EDT UTI symptoms ZZZ HISTORICAL HEPATITIS C AB W/REFL TO HCV RNA, QN, PCR Routine 10/23/2021 3:29 PM EST from Last 3 Months or Most Recently Relevant to Health Maintenance Results * US Scrotum (06/16/2025 1:03 PM EDT) Anatomical Region Laterality Modality Body Ultrasound 06/16/2025 1:03 PM EDT Narrative 06/16/2025 1:42 PM EDT [address] [address] Ultrasound Report Signed Patient: Arnav Madsen MR#: [id number] : 1955 Acct:[id number] Age/Sex: 69 / M ADM Date: 06/16/25 Loc: HO.US Attending Dr: Ambika Warner POWDER SHOVELER Ordering Physician: AMBIKA WARNER NP Date of Service: 06/16/25 Procedure(s): US scrotum Accession Number(s): [id number] cc: AMBIKA WARNER NP EXAMINATION: US SCROTUM CLINICAL INFORMATION: Left testicular swelling. COMPARISON: None available. TECHNIQUE: A sonogram of the scrotum was performed assessing kirkpatrick-scale appearance and color Doppler flow. Spectral Doppler analysis of the arterial and venous flow were performed in the testes bilaterally. FINDINGS: RIGHT: Right testicle measures 4.0 x 3.5 x 3.2 cm, volume 24 mL. No focal testicular parenchymal lesions are visualized. Spectral Doppler analysis of the arterial and venous flow is normal in the right testis. Right epididymal head is normal in size. Small right epididymal head cyst measuring 3 mm. No right varicocele. There is a small right hydrocele. Right epididymal Doppler flow is normal. LEFT: Left testicle measures 3.8 x 2.3 x 3.3 cm, volume 15 mL. No focal testicular parenchymal lesions are visualized. Spectral Doppler analysis of the arterial and venous flow is normal in the left testis. Left epididymal head is normal in size. There are several epididymal head cysts, the largest measuring 5.6 x 4.0 x 4.7 cm. There is mild specular debris contained within. No left varicocele. There is a small left hydrocele. Left epididymal Doppler flow is normal. US/US scrotum IMPRESSION: 1. There are multiple prominent left epididymal head cysts, the largest measuring 5.6 x 4.0 x 4.7 cm. 2. The testicles are normal bilaterally. 3. There are small hydroceles bilaterally. Electronically signed by: Hesham Verde MD 06/16/2025 01:40 PM EDT Dictated By: Hesham Verde MD Signed By: <Electronically signed by Hesham Verde MD in OV> 06/16/25 1340 DD/ 1303 TD/TT: 06/16/25 1310 Lineworker: Procedure Note Donotuseinterpreter, Image - 06/16/[address] [address] Ultrasound Report Signed Patient: Arnav Madsen [facility]#: [id number] : 4Acct:[id number] Age/Sex: 69 / MADM Date: 06/16/25 Loc: HO. Attending Dr: Ambika Warner NP Ordering Physician: AMBIKA WARNER NP Date of Service: 06/16/25 Procedure(s): US scrotum Accession Number(s): [id number] cc: AMBIKA WARNER NP EXAMINATION: US SCROTUM CLINICAL INFORMATION: Left testicular swelling. COMPARISON: None available. TECHNIQUE: A sonogram of the scrotum was performed assessing kirkpatrick-scale appearance and color Doppler flow. Spectral Doppler analysis of the arterial and venous flow were performed in the testes bilaterally. FINDINGS: RIGHT: Right testicle measures 4.0 x 3.5 x 3.2 cm, volume 24 mL. No focal testicular parenchymal lesions are visualized. Spectral Doppler analysis of the arterial and venous flow is normal in the right testis. Right epididymal head is normal in size. Small right epididymal head cyst measuring 3 mm. No right varicocele. There is a small right hydrocele. Right epididymal Doppler flow is normal. LEFT: Left testicle measures 3.8 x 2.3 x 3.3 cm, volume 15 mL. No focal testicular parenchymal lesions are visualized. Spectral Doppler analysis of the arterial and venous flow is normal in the left testis. Left epididymal head is normal in size. There are several epididymal head cysts, the largest measuring 5.6 x 4.0 x 4.7 cm. There is mild specular debris contained within. No left varicocele. There is a small left hydrocele. Left epididymal Doppler flow is normal. US/US scrotum IMPRESSION: 1. There are multiple prominent left epididymal head cysts, the largest measuring 5.6 x 4.0 x 4.7 cm. 2. The testicles are normal bilaterally. 3. There are small hydroceles bilaterally. Electronically signed by: Hesham Verde MD 06/16/2025 01:40 PM EDT Dictated By: Hesham Verde MD Signed By: <Electronically signed by Hesham Verde MD in OV> 06/16/25 1340 DD/ 1303 TD/TT: 06/16/25 1310 Lineworker: us Ambika Warner ANP IMG US PROCEDURES Final Result * (ABNORMAL) POCT HGB A1C (06/10/2025 2:22 PM EDT) Hemoglobin A1C 5.8(A) 4.0 - 5.7 % Blood 06/10/2025 2:22 PM EDT [facility] POINT OF CARE TEST ENTER/EDIT OR DERABLES Final Result * Culture, Urine, Routine (06/10/2025 2:18 PM EDT) Urine Urine specimen obtained by clean catch procedure / Unknown 06/10/2025 2:18 PM EDT 06/10/2025 4:42 PM EDT Comment:UACC Narrative [facility] - 06/12/2025 8:56 AM EDT Urine Culture Report Result Urine Culture < 10,000 cfu/ml Specimen Source: Urine clean catch [facility] LAB MICROBIOLOGY - GENERAL ORDER SEDA Final Result [facility] [address] [place] [address] [phone] * (ABNORMAL) POCT urinalysis dipstick manually resulted (06/10/2025 1:43 PM EDT) Color, UA Yellow Clarity, UA Clear Glucose, UA Negative Bilirubin, UA Few 15 Comment:Small Ketones, UA Positive Comment:Trace Spec Grav, UA 1.020 Blood, UA Negative Negative, None Detected pH, UA 6.0 Protein, UA Few 15 Comment:30 mg/dL Urobilinogen, UA 0.2 Leukocytes, UA Few 15(A) Negative, Rare, Trace Comment:Small Nitrite, UA Negative Negative, None Detected Urine 06/10/2025 1:43 PM EDT Ambika Warner [facility] POINT OF CARE TEST ENTER/EDIT OR DERABLES Final Result * HEPATITIS C AB W/REFL TO HCV RNA, QN, PCR (10/23/2021 3:29 PM EST) HEPATITIS C ANTIBODY NON-REACT LUCILLE NON-REACT LUCILLE [facility] INDEX 0.41 <1.00 [facility] Comment: HCV antibody was non-reactive. There is no laboratory evidence of HCV infection. In most cases, no further action is required. However, if recent HCV exposure is suspected, a test for HCV RNA (test code 73770) is suggested. For additional information please refer to http://[employer].Moodsnap/faq/YZE64k8 (This link is being provided for informational/ educational purposes only.) 10/23/2021 3:29 PM EST us Tanner Muniz MD HISTORICAL/NON ORDERABLE LABS Fi nal Result [facility] [address] from Last 3 Months or Most Recently Relevant to Health Maintenance Insurance [facility] [place] [address]
--- OUTSIDE RECORDS SUMMARY | 2025-08-10 09:28 | XMS_ITS | Encounter Summary ---
Author Organization [employer] Address [address] [place] [address] 7t [place] [address] Care Team Providers Care Plasticator Name Role Phone Unavailable Primary Care Provider Unavailabl e Reason for Visit * Reason Onset Date Comments Appointment Request 07/05/2025 Encounter Details Date Type Department Care Team ([facility] st Contact Info) Description 07/05/2025 Telephone [facility] [address] [place], [place] [phone] Tree Pacheco MD [address] [place], [place] [phone] Appointment Request Social History Tobacco Use Types Packs/Day Years Used Date Smoking Tobacco: Every Day Cigarettes Smokeless Tobacco: Never Comments:2-3 cigs/d Sex and Gender Information Value Date Recorded Sex Assigned at Male 09/09/2022 10:14 AM EDT Legal Sex Male 10:14 AM EDT Gender Identity Male 09/09/2022 10:14 AM EDT Sexual Orientation Straight 09/09/2022 10 :14 AM EDT documented as of this encounter Miscellaneous Notes * Telephone Encounter - Claudia Pisano - 08/10/2025 8:58 AM EDT Tc from pt son retuning call for new pt appointment Contact pt Son at [phone] * Telephone Encounter - Nena Smith - 07/05/2025 3:41 PM EDT Outgoing call to patient to book THERAPEUTIC ASSISTANT appt. No Answer. Left Message. documented in this encounter Plan of Treatment Not on file documented as of this encounter Visit Diagnoses Not on filedocumented in this encounter
== END 2025-08-10 09:47 | disposition home or self-care (01) ==
LOC: HO.HUSH 08:52
PROVIDERS: PCP Nurse Practitioner Primary Care; Visit Provider Urology
DX: N43.40 Spermatocele of epididymis, unspecified (principal); R39.12 Poor urinary stream; R39.11 Hesitancy of micturition; Z13.9 Encounter for screening, unspecified
CPT/HCPCS: 99204

== ENCOUNTER 2025-08-10 08:51 | Outpatient (REF) | payer OTHER, MEDICAID, SELFPAY | END 2025-08-10 08:52 | disposition home or self-care (01) | LOC: HO.LAB 08:51 | PROVIDERS: PCP Nurse Practitioner Primary Care; Visit Provider Urology | DX: N43.40 Spermatocele of epididymis, unspecified (principal); R39.11 Hesitancy of micturition; R39.12 Poor urinary stream; N39.0 Urinary tract infection, site not specified; A49.9 Bacterial infection, unspecified | CPT/HCPCS: 81003; 87086 ==

== ENCOUNTER 2025-10-04 14:56 | Outpatient (AMB) | payer MEDICARE, MEDICAID, SELFPAY ==
--- NOTE | 2025-10-04 15:07 | A.OFFVIS_ITS ---
Vital Signs 10/04/25 15:10 Height 5 ft 6 in Weight 149 lb 7.574 oz BMI 24.1 BP 170/60 H Blood Pressure Location Lt brachial Position Sitting Pulse 38 L Pulse Source Monitor Intake Visit Reasons: PATIENT RELATIONS LIAISON/Dr. Cali/abn ekg /urology surgery Banquet Pilot Required: No Banquet Pilot Services: Banquet Pilot Offered & Declined Accompanied by: Daughter Allergies No Known Allergies Allergy (Verified 08/10/25 09:14) Medication List - Last Reconciled 10/04/25 by Andrei Cast MD aspirin 81 mg PO DAILY lisinopril 10 mg PO DAILY tamsulosin (Flomax) 0.4 mg PO BEDTIME 90 days trazodone 50 mg PO BEDTIME HPI Comments Details: Arnav has been referred for preoperative risk stratification before urological surgery. No known coronary disease or myocardial infarction or cardiomyopathy. Chronic smoker. He also has poorly controlled hypertension. Smoker. It seems that he gets exertional shortness of breath with physical activity. He also gets random chest pains in no specific manner. No episodes of presyncope or syncope. [facility] Medical History (Updated 10/04/25 @ 15:55 by Andrei Cast MD) Primary hypertension Surgical History H/O hernia repair Family History Father Diabetes Social History Household Members: Significant Other Housing: Apartment Alcohol intake: current Alcohol intake frequency: holidays/special occasions only Tobacco use type: Cigarette Cigarettes Per Day: 20 Substance Use Type: Crack/Cocaine and Heroin Review of Systems Const Denies chills, Denies fatigue, Denies fever(s), Denies frequent falls, Denies weakness, Denies weight gain and Denies weight loss ENT Denies dizziness Card Denies chest pain, Denies leg edema, Denies lightheadedness, Denies palpitations, Denies dyspnea, Denies dyspnea on exertion and Denies orthopnea Resp Denies cough, Denies dyspnea and Denies dyspnea on exertion GI Denies bloating and Denies change in bowel habits Musc Denies muscle weakness, Denies numbness and Denies tingling Neuro Denies dizziness, Denies frequent falls, Denies numbness, Denies tingling and Denies weakness Endo Denies fatigue and Denies palpitations Physical Exam Vital Signs: Last Vital Signs Pulse 38 L 10/04/25 15:10 BP 170/60 H 10/04/25 15:10 BMI result Body Mass Index 24.1 Const General: comfortable and no acute distress Orientation/consciousness: patient oriented x3 HEENT Other: Unremarkable Head: Yes normal to inspection Neck Neck: Yes normal visual inspection Chest Chest palpation & inspection: normal inspection of the chest Resp Auscultation: diminished lung sounds Cardio Palpation: normal PMI Heart sounds: S1 normal heart sound present, S2 normal heart sound present, no gallops, no murmurs and no rubs GI Palpation (GI): Soft to palpation Back/Spine/Pelvis Other: unremarkable Skin General skin exam: no rashes or lesions noted Neuro General: patient oriented x3 Extrem General: Yes normal to inspection Psych Mental Status: mental status grossly normal Office Procedures EKG Details: EKG with sinus bradycardia at 38/Min with right bundle-branch block; frequent supraventricular ectopy in the pattern of bigeminy. [id number], Complete Assessment & Plan Assessment & Plan (1) Preoperative cardiovascular examination: Code(s): Z01.810 - Encounter for preprocedural cardiovascular examination Category: Medical (2) Bradycardia: Code(s): R00.1 - Bradycardia, unspecified Category: Medical (3) Primary hypertension: Code(s): I10 - Essential (primary) hypertension Category: Medical Plan EKG suggestive of sinus bradycardia with a probable atrial bigeminy. Blood pressure is poorly controlled. Multiple risk factors. He needs comprehensive cardiac workup before any surgical interventions. We will start with an echocardiogram for cardiac function assessment. With regard to the cardiac rhythm, we will plan on Holter monitor and we will also do an ETT to assess for any changes exercise. He is not aware of his medications but when we call the pharmacy, listed as lisinopril. Most likely, this needs adjustments in due course. Discussed with daughter at the bedside. Discussion Notes I discussed the plan for a cardiac workup with the patient and the patient's daughter. I explained that I will order an echocardiogram, a treadmill stress test, and a heart monitor to be worn for a few days to evaluate the symptoms. I informed them that I would attempt to schedule these tests for tomorrow. Patient was informed and verbally consented to the use of an ambient scribe for clinic note documentation during this visit. Orders: Orders CA stress test Today R00.1 - Bradycardia, unspecified, Z01.810 - Encounter for preprocedural cardiovascular examination CA echo transthoracic complete Today R00.1 - Bradycardia, unspecified, Z01.810 - Encounter for preprocedural cardiovascular examination ECG 3 day holter monitor Today R00.1 - Bradycardia, unspecified, R00.2 - Palpitations Patient Instructions: - To understand the cause of your low heart rate, chest pain, and shortness of breath, we will need to perform several tests on your heart. - These tests include an echocardiogram, which is an ultrasound of your heart. - You will also have a stress test, where you will walk on a treadmill. - We will arrange for you to wear a heart monitor for a few days to track your heart's rhythm. - We will try to have these tests scheduled at the earliest. Coding Level of Care Code New Pt Level 4 (61920) Complex visit Add On G2211 Diagnoses Preoperative cardiovascular examination Z01.810 Bradycardia R00.1 Primary hypertension I10 CPT Codes EKG - CPT: 12392-[id number], Complete ([id number])
[2025-10-04 15:10] VITALS: BP 170/60; PULSE 38; BMI 24.1
--- OUTSIDE RECORDS SUMMARY | 2025-10-04 18:42 | XMS_ITS | Encounter Summary ---
Author Organization [employer] Address [address] [facility] [address] [place] [address] Care Team Providers Care Featheredge Machine Operator Name Role Phone Steffany Cali MD Primary Care Provider + Mega Valentino PharmD Unavailable [phone] Reason for Visit * Reason Comments Med Refill Encounter Details Date Type Department Care Team ([facility] st Contact Info) Description 10/02/2025 Refill [facility] [address] [place], [place] [phone] Steffany Cali MD [address] [place], [place] [phone] Social History Tobacco Use Types Packs/Day Years Used Date Smoking Tobacco: Every Day Cigarettes Smokeless Tobacco: Never Comments:2-3 cigs/d Housing Stability Answer Date Recorded What is your housing situation today? I have adair price 09/02/[address] you li ve. Do you have problems with any of the following? None of the above 09/02/2025 Food Insecurity Answer Date Recorded Within the past 12 months, y ou worried that your food would run out before you got money to buy more: Never True 09/02/2025 Within the past 12 months,th e food you bought just didn't last and you didn't have enough money to get more: Never True Transportation Answer Date Recorded In the past 12 months, has l ack of transportation kept you from medical appts, meetings, work or from getting things needed for daily living? No 09/02/2025 Utilities Answer Date Recorded In the past 12 months, has t he electric, gas, oil or water company threatened to shut off services in your home? No 09/02/2025 Internet Access Answer Date Recorded Internet Access Q1 Yes 09/02/2025 Internet Access Q2 Not on file 09/02/2025 Sex and Gender Information Value Date Recorded Sex Assigned at Male 09/09/2022 10:14 AM EDT Legal Sex Male 10:14 AM EDT Gender Identity Male 09/09/2022 10:14 AM EDT Sexual Orientation Straight 09/09/2022 10 :14 AM EDT documented as of this encounter Plan of Treatment Upcoming Encounters Date Type Department Care Team (Late st Contact Info) Description 11/18/2025 9:00 AM EST Office Visit [facility] [address] [place] [address] Steffany Cali MD [address] [place] [address] documented as of this encounter Visit Diagnoses Not on filedocumented in this encounter Care Teams Featheredge Machine Operator Relationship Specialty Start Date End Date Steffany Cali MD [address] [place] [id number] PCP - General Internal Medicine 09/09/25 Mega Valentino, VeronicaD [address] [place] [address] [phone] Pharmacist Pharmacy 09/14/25 documented as of this encounter
--- OUTSIDE RECORDS SUMMARY | 2025-10-04 18:42 | XMS_ITS | Encounter Summary ---
Author Organization [employer] Address [address] [facility] [address]t [place] [address] Care Team Providers Care Patient Registration Clerk Name Role Phone Steffany Cali MD Primary Care Provider + Mega Valentino PharmD Unavailable [phone] Encounter Details Date Type Department Care Team (Late st Contact Info) Description 09/14/2025 Orders Only [facility] [address] [place] [address] Provider, MD Lidya Social History Tobacco Use Types Packs/Day Years Used Date Smoking Tobacco: Every Day Cigarettes Smokeless Tobacco: Never Comments:2-3 cigs/d Housing Stability Answer Date Recorded What is your housing situation today? I have [place] price 09/02/[address] you [...] Description 11/18/2025 9:00 AM EST Office Visit [facility] [address] [place] [address] Steffany Cali MD [address] [place] [address] documented as of this encounter Procedures Procedure Name Priority Date/Time Associated Diagnosis Comments COLONOSCOPY Routine 11/20/2010 9:35 AM EST documented in this encounter Results * Colonoscopy (11/20/2010 9:35 AM EST) Anatomical Region Laterality Modality Endoscopy us Historical Provider ENDOSCOPY PROCEDURE ORDER SEDA Final Result documented in this encounter Visit Diagnoses Not on filedocumented in this encounter Care Teams Patient Registration Clerk Relationship Specialty Start Date End Date Steffany Cali MD [address] [place] [phone] PCP - General Internal Medicine 09/09/25 Mega Valentino, VeronicaD [address] [place] [phone] Pharmacist Pharmacy 09/14/25 documented as of this encounter
--- OUTSIDE RECORDS SUMMARY | 2025-10-04 18:42 | XMS_ITS | Clinical Summary ---
Author Organization [employer] Address [address] [facility] 7t [place] [address] Care Team Providers Care Cellar Hand Name Role Phone Steffany Cali MD Primary Care Provider + Mega Valentino PharmD Unavailable [phone] Allergies No known active allergies Medications albuterol (Ventolin HFA) 108 (90 Base) MCG/ACT inhaler inhale 2 puff by inhalation route every 4 - 6 hours as needed 18 g 01/30/20 23 Active Blood Pressure kitIndications: Elevated blood pressure reading without diagnosis of hypertension 1 each 2 times daily. 1 kit 06/10/20 25 Active tamsulosin (Flomax) 0.4 MG 24 hr capsuleIndicati ons:Nocturia Take 1 capsule (0.4 mg) by mouth Once per day. 30 capsule 06/10/20 25 Active lisinopril 10 MG tablet Take 1 tablet (10 mg) by mouth Once per day. 30 tablet 11 09/09/20 25 026 Active nicotine polacrilex ([facility] Nicotine) 4 MG gum Chew 1 each (4 mg) if needed for smoking cessation. 100 each 09/09/20 25 025 Active aspirin 81 MG EC tablet Take 1 tablet (81 mg) by mouth Once per day. 30 tablet 11 09/09/20 25 026 Active traZODone (Desyrel) 50 MG tablet TAKE 1 TABLET BY MOUTH EVERY DAY AT BEDTIME 30 tablet 10/03/20 25 Active lisinopril-hydr oCHLOROthiazide 20-25 MG tablet Take 1 tablet by mouth in the morning. 90 tablet 01/30/20 23 025 Discontinued(N on-compliance) traZODone (Desyrel) 50 MG tablet Take 1 tablet (50 mg) by mouth at bedtime. 30 tablet 09/09/20 25 025 Discontinued(R eorder (will not trigger notification to Pharmacy)) Active Problems Problem Noted Date Diagnosed Date Primary insomnia 09/09/2025 Assessment & Plan (09/09/2025 3:30 PM EDT): Most likely related to anxiety, long-term use of recreational substance in the past. 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 Restart lisinopril at a lower dose and titrate up (he was previously on lisinopril/hydrochlorothiazide ) We discussed about cutting down smoking, low-sodium consumption. Advised to go to ED if he develops exertional chest pain, chest pain that does not resolve as usual, JENSEN that does not resolve with rest, hemibody weakness, severe headache that does not improve with Tylenol. Refer to CD[facility] program Smoker 09/30/2013 Assessment & Plan (09/09/2025 3:31 PM EDT): He reportedly cut down significantly over the past 2 or 3 years, advised importance of quit smoking due to comorbidities. Agreed to start nicotine gum as needed Lumbar radiculopathy 08/25/2013 Chronic obstructive pulmonary disease 11/23/2012 Assessment & Plan (09/09/2025 3:26 PM EDT): Will order PFTs and chest x-ray Advised to quit smoking Depressive disorder 11/23/2012 Hyperlipidemia 11/23/2012 IFG (impaired fasting glucose) 11/23/2012 Assessment & Plan (09/09/2025 3:26 PM EDT): A1c was at goal 2mo ago. I have discussed with patient regarding increasing physicial activity and decrease calorie intake Check A1c q6-12m FU A1c in 3 more months Encounters Date Type Department Care Team Description 10/02/2025 Refill [facility] [address] [place] [id number] Steffany Cali MD 09/14/2025 Orders Only [facility] [address] [place] [phone] Lidya Garrett MD 09/14/2025 Travel 09/13/[address] [phone] Steffany Cali MD Colonoscopy records 09/09/2025 10:00 AM EDT Office Visit [address] [address] Steffany Cali MD Primary hypertension (Primary Dx); IFG (impaired fasting glucose); Chronic obstructive pulmonary disease, unspecified COPD type (CMS/HCC) (HCC); Smoker; Primary insomnia; Screen for STD (sexually transmitted disease); Abnormal EKG; Precordial pain 09/09/2025 Travel 09/08/[address] [address] Steffany aCli MD chart prep 09/02/2025 Patient Outreach [facility] [address] [place], [place] [phone] Steffany Cali MD Pre-visit Planning (SDOH negative. Tobacco screening negative. ) 08/10/2025 Orders Only GENERIC EXTERNAL DATA DEPARTMENT Provider, Generic External Data 07/05/[address] [address] Tree Pacheco MD Appointment Request 07/04/[address] [phone] Tree Pacheco MD No Show from Last 3 Months Immunizations Immunization Administration [...] oid, preservative free, adsorbed 03/24/2006 Tdap 07/12/2023,08/25/2013 Zoster, live 07/11/2015 Social History Tobacco Use Types Packs/Day Years Used Date Smoking Tobacco: Every Day Cigarettes Smokeless Tobacco: Never Tobacco Cessation:Ready to Q uit: No; Counseling Given: No Comments:2-3 cigs/d Housing Stability Answer Date Recorded What is your housing situation today? I have adari price 09/02/[address] you [...] the past 12 months, has t he [employer], gas, oil or water [employer] threatened to shut off services in your [...] Sign Reading Time Taken Comments Blood Pressure 168/84 09/14/2025 10:26 AM EST Pulse 87 09/14/2025 10:26 AM EST Temperature 36.4 C (97.6 F) 09/09/2025 9:19 AM EDT Respiratory Rate 15 09/09/2025 9:19 AM EDT Oxygen Saturation 95% 09/09/2025 9:19 AM EDT Inhaled Oxygen Concentration - - Weight 67.9 kg (149 lb 12.8 oz) 09/09/2025 9:19 AM EDT Height 177 cm (5' 9.69 ) 09/09/2025 9:19 AM EDT Body Mass Index 21.69 09/09/2025 9:19 AM EDT Plan of Treatment Upcoming Encounters Date Type Department Care Team (Late st Contact Info) Description 11/18/2025 9:00 AM EST Office Visit [facility] [address] [place], [place] [phone] Steffany Cali MD [address] [place], [place] [phone] Health Maintenance Due Date Last Done Comments CT Colonography 1954 Depression Screening 1954 FIT DNA/Cologuard 1954 FIT 1954 FOBT 1954 Lipid Panel 1954 Sigmoidoscopy 1954 Alcohol/Substance Use Screening 1966 RSV Patients and Patients Aged 60 years or older (1 - Risk 50-74 years 1-dose series) 2004 Zoster Vaccines (2 of 3) 09/05/2015 07/11/2015 Hepatitis B Vaccines (2 of 3 - 19+ 3-dose series) 07/06/2020 06/08/2020 Colonoscopy 11/20/2020 11/20/2010 Colorectal Cancer Screening 11/20/2020 Pneumococcal Vaccine: 50+ Years (3 of 3 - PCV20 or PCV21) 11/01/2024 11/01/2019, 05/10/1996 COVID-19 Vaccine ( season) 2025 11/05/2022, 10/21/2022, 11/15/2021, Additional history exists Influenza Vaccine (#1) 2025 9, 09/25/2015, 08/16/2014, Additional history exists Diabetes: Hemoglobin A1C 06/10/2026 06/10/2025 SDOH Screening 09/02/2026 09/02/2025 Tobacco Screening 09/09/2026 09/09/2025 DTaP/Tdap/Td Vaccines (3 - Td or Tdap) [...] Procedure Name Priority Date/Time Associated Diagnosis Comments ECG 12-LEAD Routine 09/09/2025 3:23 PM EDT Primary hypertension CULTURE, URINE, ROUTINE Routine 08/10/2025 8:51 AM EDT POCT GLYCATED HEMOGLOBIN, TOTAL Routine 06/10/2025 2:22 PM EDT Urinary frequency ZZZ HISTORICAL HEPATITIS C AB W/REFL TO HCV RNA, QN, PCR Routine 10/23/2021 3:29 PM EST COLONOSCOPY Routine 11/20/2010 9:35 AM EST from Last 3 Months or Most Recently Relevant to Health Maintenance Results * ECG 12 lead (09/09/2025 3:23 PM EDT) Narrative Steffany Cali MD - 09/09/2025 3:23 PM EDT NSR at 72 bpm, vertical axis. Right bundle branch block pattern with occasional PVCs. Steffany Cali MD ECG ORDERABLES Final Re sult * Culture, Urine, Routine (08/10/2025 8:51 AM EDT) 08/10/2025 8:51 AM EDT 08/10/2025 5:28 PM EDT Comment:UROTHER Narrative [facility] - 08/12/2025 1:14 PM EDT Urine Culture No growth. Specimen Source: Urine Other Generic External Data Provider LAB MICROBIOLOGY - GENERAL ORDERABLES Final Result [facility] [address] [place] [phone] * (ABNORMAL) POCT HGB A1C (06/10/2025 2:22 PM EDT) Hemoglobin A1C 5.8(A) 4.0 - 5.7 % Blood 06/10/2025 2:22 PM EDT Hilaria SHIELDS POINT OF CARE TEST ENTER/EDIT OR DERABLES Final Result * HEPATITIS C AB W/REFL TO HCV RNA, QN, PCR (10/23/2021 3:29 PM EST) HEPATITIS C ANTIBODY NON-REACT [place] NON-REACT [facility] INDEX 0.41 <1.00 [facility] Comment: HCV antibody was non-reactive. There is no laboratory evidence of HCV infection. In most cases, no further action is required. However, if recent HCV exposure is suspected, a test for HCV RNA (test code 71182) is suggested. For additional information please refer to http://education.[employer]ala/faq/YWN30e2 (This link is being provided for informational/ educational purposes only.) 10/23/2021 3:29 PM EST Tanner Muniz MD HISTORICAL/NON ORDERABLE LABS Fi nal Result [facility] [address] * Colonoscopy (11/20/2010 9:35 AM EST) Anatomical Region Laterality Modality Endoscopy us Historical Provider ENDOSCOPY PROCEDURE ORDER SEDA Final Result from Last 3 Months or Most Recently Relevant to Health Maintenance Insurance [employer] PPO Care Teams Cellar Hand Relationship Specialty Start Date End Date Steffany Cali MD [address] [place] [address] PCP - General Internal Medicine 09/09/25 Mega Valentino, PharmD [address] [place] [address] Pharmacist Pharmacy 09/14/25
== END 2025-10-04 15:40 | disposition home or self-care (01) ==
LOC: HO.HCS 14:57
PROVIDERS: PCP Nurse Practitioner Primary Care; Visit Provider Internal Medicine
DX: Z01.810 Encounter for preprocedural cardiovascular examination (principal); R00.1 Bradycardia, unspecified; I10 Essential (primary) hypertension
CPT/HCPCS: 93010; 99214; G2211

== ENCOUNTER → 2025-10-04 14:56 | Outpatient (BNVA) | payer MEDICARE, MEDICAID, SELFPAY | PROVIDERS: PCP Nurse Practitioner Primary Care; Visit Provider Internal Medicine | DX: Z01.810 Encounter for preprocedural cardiovascular examination (principal); I10 Essential (primary) hypertension; R00.1 Bradycardia, unspecified | CPT/HCPCS: 93005; 99212 ==

== ENCOUNTER → 2025-10-05 11:06 | Outpatient (REF) | payer MEDICARE, MEDICAID, SELFPAY ==
--- NOTE | 2025-10-05 11:08 | HM_ITS ---
* Total monitoring time 3 days. * Underlying rhythm is sinus with an average rate of 67/Min. * Frequent supraventricular ectopy with a burden of 5.8%. * Rare ventricular ectopy. Rare couplets and triplets. * No significant pauses or high-grade AV blocks. * No patient markers or diary events. MTDD
--- NOTE | 2025-10-05 11:08 | CA_ITS ---
Acquisition Time: 2025-10-05 11:13:24 Total Exercise Time: 00:02:25 Test Indications: derek, preop Medications: see h&p Protocol: WISAM Max HR: 91 BPM 61% of Pred: 149 BPM Max BP: 168/78 mmHG Max Work Load: 4.6 METS Exercise stress test with exercise 2 mins 25 secs of Wisam Protocol, achieving 60% MPHR, requested to stop due to b/l leg discomfort, reported SOB, no chest pain, with frequent PACs, in bigeminy pattern in recovery, with normotensive response to exercise. No ischemic changes on EKG at achieved workload. In recovery, breathing improved and leg pain resolved. Test reviewed with Dr. Cast. Will order a Rakel MIBI. Referred By: Andrei Cast Electronically Signed By: Ruddy Alonso
--- OUTSIDE RECORDS SUMMARY | 2025-10-05 13:47 | XMS_ITS | Encounter Summary ---
Author Organization [employer] Address [address] [facility] 7t [place] [address] Care Team Providers Care Sap Solutions Architect Name Role Phone Steffany Cali MD Primary Care Provider + Mega Valentino PharmD Unavailable [phone] Encounter Details Date Type Department Care Team (Late st Contact Info) Description 09/14/2025 Orders Only [facility] [address] [place] [address] Provider, MD Lidya Social History Tobacco Use [...] Description 11/18/2025 9:00 AM EST Office Visit [facility] [address] [place] [address] Steffany Cali MD [address] [place] [address] documented as of this encounter Procedures Procedure Name Priority Date/Time Associated Diagnosis Comments COLONOSCOPY Routine 11/20/2010 9:35 AM EST documented in this encounter Results * Colonoscopy (11/20/2010 9:35 AM EST) Anatomical Region Laterality Modality Endoscopy us Historical Provider ENDOSCOPY PROCEDURE ORDER SEDA Final Result documented in this encounter Visit Diagnoses Not on filedocumented in this encounter Care Teams Sap Solutions Architect Relationship Specialty Start Date End Date Steffany Cali MD [address] [place] [phone] PCP - General Internal Medicine 09/09/25 Mega Valentino, VeronicaD [address] [place] [phone] Pharmacist Pharmacy 09/14/25 documented as of this encounter
--- OUTSIDE RECORDS SUMMARY | 2025-10-05 13:47 | XMS_ITS | Encounter Summary ---
Author Organization [employer] Address [address] [facility] 7t [place] [address] Care Team Providers Care Rpg Programmer Name Role Phone Steffany Cali MD Primary Care Provider + Mega Valentino PharmD Unavailable [phone] Reason for Visit * Reason Comments Med Refill Encounter Details Date Type Department Care Team ([facility] st Contact Info) Description 10/02/2025 Refill [facility] [address] [place], [place] [phone] Steffany Cali MD [address] [place], [place] [phone] Social History Tobacco Use Types Packs/Day Years [...] Description 11/18/2025 9:00 AM EST Office Visit [facility] [address] [place] [address] Steffany Cali MD [address] [place] [address] documented as of this encounter Visit Diagnoses Not on filedocumented in this encounter Care Teams Rpg Programmer Relationship Specialty Start Date End Date Steffany Cali MD [address] [place] [phone] PCP - General Internal Medicine 09/09/25 Mega Valentino, VeronicaD [address] [place] [address] [phone] Pharmacist Pharmacy 09/14/25 documented as of this encounter
--- OUTSIDE RECORDS SUMMARY | 2025-10-05 13:47 | XMS_ITS | Clinical Summary ---
Author Organization [employer] Address [address] [facility] 7t [place] [address] Care Team Providers Care Line O Scribe Operator Name Role Phone Steffany Cali MD Primary Care Provider + Mega Valentino PharmD Unavailable Allergies No known active allergies Medications albuterol (Ventolin HFA) 108 (90 Base) MCG/ACT inhaler inhale 2 puff by inhalation route every 4 - 6 hours as needed 18 g 01/30/20 23 Active Blood Pressure kitIndications: Elevated blood pressure reading without diagnosis of hypertension 1 each 2 times daily. 1 kit 06/10/20 25 026 Active tamsulosin (Flomax) 0.4 MG 24 hr [...] Type Department Care Team Description 10/02/2025 Refill [facility] [address] [place] [phone] Steffany Cali MD 09/14/2025 Orders Only [facility] [address] [place] [phone] Lidya Garrett MD 09/14/2025 Travel 09/13/[address] [address] Steffany Cali MD Colonoscopy records 09/09/2025 10:00 AM EDT Office Visit [address] [address] Steffany Cali MD Primary hypertension (Primary Dx); IFG (impaired fasting glucose); Chronic obstructive pulmonary disease, unspecified COPD type (CMS/HCC) (HCC); Smoker; Primary insomnia; Screen for STD (sexually transmitted disease); Abnormal EKG; Precordial pain 09/09/2025 Travel 09/08/[address] [phone] Steffany Cali MD chart prep 09/02/2025 Patient Outreach [facility] [address] [place], [place] [phone] Steffany Cali MD Pre-visit Planning (SDOH negative. Tobacco screening negative. ) 08/10/2025 Orders Only GENERIC EXTERNAL DATA DEPARTMENT Provider, Generic External Data 07/05/[address] [phone] Tree Pacheco MD Appointment Request from Last 3 Months Immunizations Immunization Administration [...] Description 11/18/2025 9:00 AM EST Office Visit [facility] [address] [place], [place] [phone] Steffany Cali MD [address] [place], [place] [phone] Health Maintenance Due Date Last Done Comments [...] or PCV21) 11/01/2024 11/01/2019, 05/10/1996 COVID-19 Vaccine (5 - season) 2025 11/05/2022, 10/21/2022, 11/15/2021, Additional history [...] bundle branch block pattern with occasional PVCs. us Steffany Cali MD ECG ORDERABLES Final Re sult * Culture, Urine, Routine (08/10/2025 8:51 AM EDT) 08/10/2025 8:51 AM EDT 08/10/2025 5:28 PM EDT Comment:UROTHER Narrative [facility] - 08/12/2025 1:14 PM EDT Urine Culture No growth. Specimen Source: Urine Other Generic External Data Provider LAB MICROBIOLOGY - GENERAL ORDERABLES Final Result [facility] [address] [place] [address] [phone] * (ABNORMAL) POCT HGB A1C (06/10/2025 2:22 PM EDT) Hemoglobin A1C 5.8(A) 4.0 - 5.7 % Blood 06/10/2025 2:22 PM EDT [facility] POINT OF CARE TEST ENTER/EDIT OR DERABLES [...] a test for HCV RNA (test code 91823) is suggested. For additional information please refer to http://education.[employer]/faq/MFG70v5 (This link is being provided for informational/ educational purposes only.) 10/23/2021 3:29 PM EST Tanner Muniz MD HISTORICAL/NON ORDERABLE LABS Fi nal Result [facility] [address] [place] [address], * Colonoscopy (11/20/2010 9:35 AM EST) Anatomical Region Laterality Modality Endoscopy us Historical Provider ENDOSCOPY PROCEDURE ORDER SEDA Final Result from Last 3 Months or Most Recently Relevant to Health Maintenance Insurance [employer] PPO Care Teams Line O Scribe Operator Relationship Specialty Start Date End Date Steffany Cali MD [address] [place] [phone] PCP - General Internal Medicine 09/09/25 Mega Valentino, PharmD [address] [place] [phone] Pharmacist Pharmacy 09/14/25
== END ==
LOC: HO.CARD 11:06
PROVIDERS: PCP Nurse Practitioner Primary Care; Visit Provider Internal Medicine
DX: Z01.810 Encounter for preprocedural cardiovascular examination (principal); R00.1 Bradycardia, unspecified; R00.2 Palpitations; R07.9 Chest pain, unspecified
CPT/HCPCS: 93017; 93242

== ENCOUNTER → 2025-10-05 11:08 | Outpatient (BNV) | payer MEDICARE, MEDICAID, SELFPAY | PROVIDERS: PCP Nurse Practitioner Primary Care | DX: I49.1 Atrial premature depolarization (principal); R06.02 Shortness of breath | CPT/HCPCS: 93016; 93018; 93244 ==

== ENCOUNTER 2025-10-19 09:40 | Outpatient (REF) | payer MEDICARE, MEDICAID, SELFPAY ==
[2025-10-19 11:26] LABS: MANUAL DIFF FLAG NO
[2025-10-19 11:33] LABS: Hematocrit 49.4 % (42.0-52.0); Hemoglobin 16.0 g/dl (14.0-18.0); Imm Gran Abs Auto 0.02 X10*3/uL (0.00-0.03); Imm Gran Pct Auto 0.3 % (0.0-0.4); Lymphocytes Absolute Auto 2.9 X10*3/uL (1.2-4.9); Mean Corpuscular HGB Conc 32.4 g/dl (31.0-36.0); Mean Corpuscular Hemoglobin 29.9 pg (27.0-33.0); Mean Corpuscular Volume 92.2 fL (80.0-98.0); NRBC Abs Auto 0.000 X10*3/uL (0.0-0.012); NRBC Pct Auto 0.0 /100WBC (0.0-0.2); Platelet Count 255 X10*3/uL (160-400); Red Blood Count 5.36 X10*6/uL (4.60-5.80); White Blood Count 7.5 X10*3/uL (4.8-10.8)
[2025-10-19 12:28] LABS: Syphilis Screen Nonreactive (Nonreactive)
[2025-10-19 12:29] LABS: Alanine Aminotransferase 14 U/L (0-40); Albumin Level 4.2 g/dL (3.5-5.0); Alkaline Phosphatase 87 U/L (39-117); Anion Gap 8 (12-20); Aspartate Amino Transferase 23 U/L (5-37); Blood Urea Nitrogen 11 mg/dL (9-16); Calcium 9.2 mg/dL (8.4-10.2); Carbon Dioxide 30 mmol/L (22-29); Chloride 105 mmol/L (96-108); Cholesterol 197 mg/dL (<200); Estimated Glomerular Filt Rate > 60; HDL Cholesterol 58 mg/dL (>40); Potassium 4.4 mmol/L (3.3-5.1); Sodium 139 mmol/L (135-145); Total Protein 8.3 g/dL (6.5-8.0); Triglycerides 101 mg/dL (<150)
[2025-10-19 12:34] LABS: HBc Num1 0.19 S/CO (0.00-0.79); HBsAGNum1 0.44 S/CO (0.00-0.99); HIV Num 1 0.06 S/CO (0.00-0.99); Hepatitis A Antibody IgM 0.26 Index (0-0.79); Hepatitis B Surface Antigen Negative (Negative); ~HepC Num1 0.36 S/CO (0.00-0.79); ~Hepatitis A Antibody IgM Nonreactive (Nonreactive); ~Hepatitis B Surface Antibody REACTIVE (Nonreactive); ~Hepatitis C Antibody Nonreactive (Nonreactive)
[2025-10-19 12:41] LABS: Prostate Specific Antigen 3.59 ng/mL (<0.05-4.0)
== END 2025-10-19 09:41 ==
LOC: HO.HHCL 09:40
PROVIDERS: PCP Nurse Practitioner Primary Care; Referring Provider Internal Medicine; Visit Provider Nurse Practitioner Primary Care
DX: Z11.3 Encounter for screening for infections with a predominantly sexual mode of transmission (principal); Z12.5 Encounter for screening for malignant neoplasm of prostate; Z11.4 Encounter for screening for human immunodeficiency virus [HIV]; Z01.84 Encounter for antibody response examination; Z11.1 Encounter for screening for respiratory tuberculosis; Z13.21 Encounter for screening for nutritional disorder; R35.1 Nocturia; E78.5 Hyperlipidemia, unspecified; R73.01 Impaired fasting glucose; J44.9 Chronic obstructive pulmonary disease, unspecified; I10 Essential (primary) hypertension
CPT/HCPCS: 36415; 80048; 80061; 80076; 82306; 84153; 84443; 85025; 86481; 86704; 86706; 86709; 86780; 86803; 87340; 87389